=== PATIENT | female | born 2005 | race Caucasian/White ===

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

== ENCOUNTER 2023-04-07 20:17 | Emergency (ER) | payer MEDICAID, SELFPAY ==
[2023-04-07 20:23] VITALS: BP 104/71; PULSE 105; RESP 18; TEMP 37.2; O2SAT 98; BMI 24.4
[2023-04-07 21:13] LABS: Add Urine Culture? No; Add Urine Microscopic? YES; Amorphous Sediment Urine 2+ /hpf; Bacteria Urine TRACE /hpf; Bilirubin Urine Neg (Negative); Blood Urine Neg (Negative); Glucose Urine UA Norm (Normal); Ketones Urine Negative (Negative); Leukocyte Esterase Urine Trace (Negative); Nitrate Urine Negative (Negative); Protein Urine Neg (Negative); RBC Urine 0-4 /hpf (0-2); Squamous Epithelial Cell Urine 0-4 /hpf (0-5); Sulfosalicylic Acid Urine Negative (Negative); Urine Appearance Clear (CLEAR); Urine Color Yellow (Yellow); Urobilinogen Urine Norm (Negative); WBC Urine 0-4 /hpf (0-5); pH Urine 8 (5-7)
[2023-04-07 21:36] VITALS: BP 99/63; PULSE 110; RESP 16; O2SAT 97
--- NOTE | 2023-04-07 21:46 | W.ED.FEVER ---
HPI - Fever General: Chief Complaint: Fever Stated Complaint: fever, cp,chills, 5 weeks Time Seen by Provider: 04/07/23 20:29 History of Present Illness: Patient is in today for fever. She reports that she is 5 weeks . She reports that 2 hours ago, on the way home from [facility], she developed significant fever, chills, some nausea. She states that she has been around a family member who was recently sick with upper respiratory staff. She denies any pain with urination. She denies any vaginal bleeding or uterine cramping. She has not been vaccinated against influenza this year. Associated symptoms: Reports chills, headache(s), nasal congestion and nausea; Deny abdominal pain, flank pain, chest pain, dysuria or vomiting Review of Systems Const: Reports: fever(s), chills, body aches and fatigue ENMT: Reports: throat pain, nasal discharge, nasal congestion and post nasal drip Card: Denies: chest pain or palpitations Resp: Denies: dyspnea, productive cough or non-productive cough GI: Reports: nausea; Denies: abdominal pain or vomiting : Denies: flank pain, difficulty voiding, dysuria, urinary frequency or vaginal bleeding Neuro: Reports: headache(s); Denies: numbness in extremities, weakness in extremities, sensory changes or lack of coordination PFSH ED PFSH: Medical History Allergic rhinitis due to allergen Anxiety and depression Arthralgia Contraception management Foster care child Insomnia Seizures She stopped keppra 01/2021 at the recommendation of her PCP in [place]. Her last seizure was right before coming off the keppra. She has not seen neurology since coming out of foster care-- at least 2019. Viral URI with cough Surgical History History of tonsillectomy and adenoidectomy Surgery at age 4 in [place], [place] Family History Grandmother Diabetes maternal Hypertension Paternal Family/Other Cancer Maternal uncle; type unknown Denies family history of Colon cancer Ovarian cancer Heart disease Hypercholesteremia Breast cancer Uterine cancer Thyroid disease Stroke Social History (Reviewed 04/07/23 @ 21:50 by LINDSEY Ruiz-Tracy Substance/Drug Use: never Additional social history: Well balanced diet Do you think of yourself as: Straight/Heterosexual Female Reproductive History: Date of last menstrual period: 01/28/23 Physical Exam Const: COMMON NORMALS: no acute distress, patient oriented x3 and alert HENMT: COMMON NORMALS: TM's normal bilaterally NOSE: Nasal discharge present clear TYMPANIC MEMBRANE: TM's normal bilaterally THROAT: uvula midline, posterior oropharynx abnormal erythema and other (Postnasal drainage); no exudates and postnasal drainage Neck/C-Spine: COMMON NORMALS: no JVD Resp: COMMON NORMALS: normal respiratory effort, No use of accessory muscles and clear to auscultation bilaterally AUSCULTATION: clear to auscultation bilaterally Cardio: COMMON NORMALS: no JVD, regular rate, regular rhythm, S1 normal heart sound present, S2 normal heart sound present and No murmurs present (Cardio) RATE: regular rate RHYTHM: regular rhythm HEART SOUNDS: S1 normal heart sound present and S2 normal heart sound present GI: COMMON NORMALS: Normal to inspection, nondistended, normoactive bowel sounds present, Soft to palpation, non-tender and No hepatosplenomegaly present PALPATION: Yes Soft to palpation and Yes No hepatosplenomegaly present Neuro: COMMON NORMALS: patient oriented x3, CN's II-XII intact bilaterally and moves all extremities SENSORIUM/ORIENTATION: Yes alert Course Vital Signs: Vital signs: Vital Signs Temperature 99 F 04/07/23 20:23 Pulse Rate 110 H 04/07/23 21:36 Respiratory Rate 16 04/07/23 21:36 Blood Pressure 99/63 04/07/23 21:36 Pulse Oximetry 97 04/07/23 21:36 Oxygen Delivery Me thod Room Air 04/07/23 21:56 MDM - Fever Medical Decision Making Consider urinary tract infection, upper respiratory infection, influenza, COVID-19, strep pharyngitis Patient reports being 5 weeks with no complications thus far. UA dip positive for trace leukocytes negative for nitrates will send for culture treat as indicated based on culture results. COVID-19?negative Rapid strep?negative Influenza?negative CBC with normal white blood cell count. Heart rate and respirations are improved. Heart rate is in the 80s. Patient reports feeling better. She reports that she feels like she could go home at this point. She denies any pain anywhere. She denies that she has had any pelvic cramping or vaginal pain. We discussed discharge to home with conservative management of viral infection. Make sure that she is staying well-hydrated. Tylenol as needed to control fever. Continue routine follow-up with ADVERTISING SALES MANAGER. Follow-up with her PCP. Return to the ER for any new or worsening symptoms. Patient verbalizes understanding of instruction and wishes to be discharged home at this time. Lab Data 04/07/23 22:20 04/07/23 22:20 Laboratory Results WBC 12.45 10^3/uL (4.5-13.0) 04/07/23 22: RBC 4.18 10^6/uL (3.85-5.65) 04/07/23 22:20 Hgb 12.60 g/dL (12.4-14.8) 04/07/23 22:20 Hct 37.6 % (36-47) 04/07/23 22:20 MCV 90.0 fl (85-98) 04/07/23 22:20 MCH 30.1 pg (27-33) 04/07/23 22:20 MCHC 33.5 g/dL (30-55) 04/07/23 22:20 RDW 12.1 % (12.1-15.1) 04/07/23 22:20 Plt Count 192 10^3/cmm (157-399) 04/07/23 22:20 MPV 9.0 fL (7.4-10.4) 04/07/23 22:20 Neut % (Auto) 84.9 % 04/07/23 22:20 Lymph % (Auto) 8.6 % 04/07/23 22:20 [place] % (Auto) 5.4 % 04/07/23 22:20 Eos % (Auto) 0.6 % 04/07/23 22:20 Baso % (Auto) 0.2 % 04/07/23 22:20 Neut # (Auto) 10.58 10^3/uL (1.8-8.0) H 04/07/23 22:20 Lymph # (Auto) 1.1 10^3/uL (1.5-6.5) L 04/07/23 22:20 [place] # (Auto) 0.7 10^3/uL (0.2-0.9) 04/07/23 22:20 Eos # (Auto) 0.1 10^3/uL (0.0-0.8) 04/07/23 22:20 Baso # (Auto) 0.0 10^3/uL (0.0-0.1) 04/07/23 22:20 Nucleated RBC % (auto) 0 % 04/07/23 22:20 Nucleated RBCs # 0.0 /100WBC 04/07/23 22:20 Sodium 135 mmol/L (136-145) L 04/07/23 22:20 Potassium 3.7 mmol/L (3.5-5.1) 04/07/23 22:20 Chloride 104 mmol/L (98-107) 04/07/23 22:20 Carbon Dioxide 19 mmol/L (22-29) L 04/07/23 22:20 Anion Gap 15.7 (5-19) 04/07/23 22:20 BUN 7 mg/dL (6-20) 04/07/23 22:20 Creatinine 0.7 mg/dL (0.5-0.9) 04/07/23 22:20 GFR Calculation 106.7 mL/min (90-130) 04/07/23 22:20 Glucose 98 mg/dL (65-115) 04/07/23 22:20 Calculated Osmolality 278 mOsm/kg (285-295) L 04/07/23 22:20 Lactic Acid 0.7 mmol/L (0.5-2.2) 04/07/23 22:20 Calcium 9.2 mg/dL (8.5-10.5) 04/07/23 22:20 Total Bilirubin 0.4 mg/dL (0.15-1.2) 04/07/23 22:20 AST 12 U/L (0-32) 04/07/23 22:20 ALT 6 U/L (0-33) 04/07/23 22:20 Alkaline Phosphatase 80 U/L (35-105) 04/07/23 22:20 Total Protein 7.1 g/dL (6.6-8.7) 04/07/23 22:20 Albumin 4.4 g/dL (3.5-5.2) 04/07/23 22:20 Globulin 2.7 g/dL (1.3-4.6) 04/07/23 22:20 Ser , Semi-Qnt 82684.00 mIU/mL 04/07/23 22:20 Urine Color Yellow (Yellow) 04/07/23 18:45 Urine Appearance Clear (CLEAR) 04/07/23 18:45 Urine pH 8 (5-7) H 04/07/23 18:45 Ur Specific [place] 1.010 (1.005-1.030) 04/07/23 18:45 Urine Protein Neg (Negative) 04/07/23 18:45 Urine Glucose (UA) Norm (Normal) 04/07/23 18:45 Urine Ketones Negative (Negative) 04/07/23 18:45 Urine Blood Neg (Negative) 04/07/23 18:45 Urine Nitrate Negative (Negative) 04/07/23 18:45 Urine Bilirubin Neg (Negative) 04/07/23 18:45 Prot Sulfosalicylic Acd Negative (Negative) 04/07/23 18:45 Urine Urobilinogen Norm mg/dL (Negative) 04/07/23 18:45 Ur Leukocyte Esterase Trace (Negative) H 04/07/23 18:45 Urine RBC 0-4 /hpf (0-2) H 04/07/23 18:45 Urine WBC 0-4 /hpf (0-5) H 04/07/23 18:45 Ur Squamous Epith Cells 0-4 /hpf (0-5) H 04/07/23 18:45 Amorphous Sediment 2+ /hpf 04/07/23 18:45 Urine Bacteria Trace /hpf (NONE) 04/07/23 18:45 Influenza Type A Ag Negative (Negative) 04/07/23 21:31 Influenza Type B Ag Negative (Negative) 04/07/23 21:31 SARS-CoV-2 Ag (Rapid) Negative (Negative) 04/07/23 21:31 Group A Strep Rapid Negative (Negative) 04/07/23 21:31 No radiology studies performed this visit Discharge Plan Discharge Patient Disposition: Home Clinical Impression: Viral infection Condition: Stable Prescriptions: No Action paroxetine HCl [Paxil] 10 mg tablet 10 mg PO .qhs Qty: 30 5RF Discharge Orders: Discharge ED (Routine); Ordered 04/07/23 Ordered By: Charmaine Torres Referrals: Robin Smith MD [Primary Care Provider] - Discharge Diet: Usual diet Discharge Activity: Resume usual activity Patient Instructions: Viral Syndrome - Adult Activity Restrictions/Additional Instructions: You tested negative for COVID-19, influenza, strep pharyngitis. I recommend conservative treatment at home for viral infection including Tylenol as needed for fever control. Make sure that you are staying well-hydrated. Follow-up with your primary care provider as needed. Return to the ER for any new or worsening symptoms. Continue routine follow-up with ADVERTISING SALES MANAGER. Your urine was sent off today for culture should that come back positive for bacterial growth we will start you on antibiotics. Coding Level of Care Code ED Food Processing Plant Manager for Faizan Yao
[2023-04-07 21:48] LABS: Rapid Strep A Test Negative (Negative)
[2023-04-07 22:03] LABS: SARS Covid-2 Antigen Negative (Negative)
[2023-04-07 22:04] LABS: Influenza A by IFA Negative (Negative); Influenza B by IFA Negative (Negative)
[2023-04-07] MEDS: acetaminophen 500 mg Tablet 1000 MG PO (22:07)
[2023-04-07] MEDS: sodium chloride 0.9% 1,000 ML 999 ML IV (22:23)
[2023-04-07 22:45] LABS: Basophils % 0.2 %; Eosinophils # 0.1 10^3/uL (0.0-0.8); Eosinophils % 0.6 %; Hematocrit 37.6 % (36-47); Lymphocytes # 1.1 10^3/uL (1.5-6.5); Lymphocytes % 8.6 %; Mean Corpuscular HGB Conc 33.5 g/dL (30-55); Mean Corpuscular Hemoglobin 30.1 pg (27-33); Monocytes # 0.7 10^3/uL (0.2-0.9); Monocytes % 5.4 %; Neutrophils # 10.58 10^3/uL (1.8-8.0); Neutrophils % 84.9 %; Nucleated Red Blood Cells % 0 %; Platelet Count 192 10^3/cmm (157-399); Red Blood Count 4.18 10^6/uL (3.85-5.65); Red Cell Distribution Width 12.1 % (12.1-15.1); White Blood Count 12.45 10^3/uL (4.5-13.0)
[2023-04-07 22:56] LABS: Lactic Sepsis W/Reflex 0.7 mmol/L (0.5-2.2)
[2023-04-07 22:58] LABS: Alanine Aminotransferase 6 U/L (0-33); Albumin Level 4.4 g/dL (3.5-5.2); Alkaline Phosphatase 80 U/L (35-105); Anion Gap 15.7 (5-19); Aspartate Amino Transferase 12 U/L (0-32); Blood Urea Nitrogen 7 mg/dL (6-20); Calcium 9.2 mg/dL (8.5-10.5); Carbon Dioxide 19 mmol/L (22-29); Chloride 104 mmol/L (98-107); Globulin 2.7 g/dL (1.3-4.6); Glomerular Filtration Rate 106.7 mL/min (90-130); Glucose 98 mg/dL (65-115); Osmolality Calculated 278 mOsm/kg (285-295); Potassium 3.7 mmol/L (3.5-5.1); Sodium 135 mmol/L (136-145); Total Bilirubin 0.4 mg/dL (0.15-1.2); Total Protein 7.1 g/dL (6.6-8.7)
[2023-04-07 23:26] VITALS: BP 96/47; PULSE 86; RESP 16; O2SAT 95
== END 2023-04-07 23:26 | disposition home or self-care (01) ==
PROVIDERS: Emergency Medicine; Emergency Provider Nurse Practitioner Family; PCP Family Medicine Adult Medicine
DX: B34.9 Viral infection, unspecified (principal); Z11.52 Encounter for screening for COVID-19; O98.511 Other viral diseases complicating pregnancy, first trimester; Z3A.01 Less than 8 weeks gestation of pregnancy
CPT/HCPCS: 36415; 80053; 81001; 83605; 84702; 85025; 87081; 87426; 87804; 87880; 99284; J7030

== ENCOUNTER 2023-06-11 11:54 | Emergency (ER) | payer MEDICAID, SELFPAY ==
[2023-06-11 11:59] VITALS: BP 100/57; PULSE 73; RESP 15; TEMP 36.8; O2SAT 100; BMI 20.5
--- NOTE | 2023-06-11 12:25 | USR_ITS ---
PROCEDURE INFORMATION: Exam: US , Limited Exam date and time: 06/11/2023 1:29 PM Age: 18 years old Clinical indication: complicated by abdominal or pelvic pain; Lower; Second trimester (14 weeks 0 days to 27 weeks 6 days); Gestational age or lmp: 16 w1d by US; ; Additional info: Pelvic pain, 15 weeks gestation transabdominal technique. TECHNIQUE: Imaging protocol: Real-time ultrasound of the maternal uterus with image documentation. Exam focused on the clinical indication. COMPARISON: No relevant prior studies available. FINDINGS: Gestation: Intrauterine gestation. Within the uterus is a gestational sac with a single pole. Formal anatomical survey is not performed. heart rate: cardiac activity at 153 bpm is observed. Placenta: The relationship of the anterior placenta to the internal os is not fully delineated, recommend follow-up ultrasound in late 2nd trimester to exclude previa. Amniotic fluid: Amniotic fluid volume appears appropriate. BIOMETRY: Gestational age (AUA): Estimated age by ultrasound is 16 weeks and 1 day. Biparietal diameter (BPD): BPD 3.25 cm, 16 weeks 1 day. Head circumference (HC): Head circumference 12.2 cm, 16 weeks 1 day. Abdominal circumference (AC): Abdominal circumference 10.25 cm, 16 weeks 2 days. Femur length (FL): Femur length 2.0 cm, 16 weeks 0 days. MATERNAL: Cervix: Cervical length is 3.1 cm and appears closed. The maternal adnexa are not evaluated. US/US OB limited [id number] IMPRESSION: 1. Living intrauterine gestation at estimated 16 weeks and 0 days. Recommend correlation with clinical history. 2. Anterior placenta. Relationship of the placenta to the internal os is not fully delineated, recommend follow-up ultrasound to exclude placenta previa or low-lying placenta.
--- NOTE | 2023-06-11 12:25 | ED_ITS ---
HPI - Abdominal Pain 2 General: Chief Complaint: Abdominal Pain Stated Complaint: lower abd pain (pt is 15 weeks prg) Time Seen by Provider: 06/11/23 12:17 History of Present Illness: Patient presents to the ER with complaints of low stabbing abdominal pain that radiates to the back. Patient said this been going on for about the last week or so. Patient does not had a recent ultrasound. Patient is high risk and says she needs biweekly ultrasounds. 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 Patient states she is approximately 15 weeks gestation, has a history of seizures, denies any nausea vomiting diarrhea dysuria. Patient states the low pelvic pain is worse with movement palpation and coughing. Review of Systems 2 General: Reports: 10 or more systems reviewed and unremarkable except in HPI and below PFSH ED 2 PFSH: Medical History Allergic rhinitis due to allergen Viral URI with cough Insomnia Arthralgia Foster care child Anxiety and depression Seizures She stopped keppra 01/2021 at the recommendation of her PCP in [place]. Her last seizure was right before coming off the keppra. She has not seen neurology since coming out of foster care-- at least 2019. Contraception management Surgical History History of tonsillectomy and adenoidectomy Surgery at age 4 in [place], [place] Family History Grandmother Diabetes maternal Hypertension Paternal Family/Other Cancer Maternal uncle; type unknown Denies family history of Colon cancer Ovarian cancer Heart disease Hypercholesteremia Breast cancer Uterine cancer Thyroid disease Stroke Social History Substance/Drug Use: never Additional social history: Well balanced diet Do you think of yourself as: Straight/Heterosexual Physical Exam 2 Const: COMMON NORMALS: no acute distress, average body habitus, patient oriented x3, no limitations, healthy appearing, alert and well nourished HENMT: COMMON NORMALS: normocephalic, atraumatic, hearing grossly normal bilaterally, external ears normal, Normal external nose present, moist oral mucous membranes and oropharynx normal HEAD & SCALP: normocephalic and atraumatic NOSE: Normal external nose present EXTERNAL EAR: Yes external ears normal Neck/C-Spine: COMMON NORMALS: no JVD Chest: COMMONS NORMALS: normal inspection of the chest and normal palpation of entire chest wall Resp: COMMON NORMALS: normal respiratory effort, No retractions, No use of accessory muscles and clear to auscultation bilaterally AUSCULTATION: clear to auscultation bilaterally Cardio: COMMON NORMALS: no JVD, regular rate, regular rhythm, S1 normal heart sound present, S2 normal heart sound present, No gallops present (Cardio), No clicks present (Cardio), No murmurs present (Cardio) and No rub (Cardio) R ATE: regular rate RHYTHM: regular rhythm HEART SOUNDS: S1 normal heart sound present and S2 normal heart sound present GI: COMMON NORMALS: Normal to inspection, nondistended, normoactive bowel sounds present, Soft to palpation and No hepatosplenomegaly present; negative for non-tender (Tender lower pelvic bilaterally) PALPATION: Yes Soft to palpation and Yes No hepatosplenomegaly present Neuro: COMMON NORMALS: patient oriented x3 SENSORIUM/ORIENTATION: Yes alert Course 2 Vital Signs: Vital signs: Vital Signs Temperature 98.2 F 06/11/23 11:59 Pulse Rate 83 06/11/23 13:16 Respiratory Rate 15 06/11/23 13:16 Blood Pressure 100/57 06/11/23 13:16 Pulse Oximetry 100 06/11/23 13:16 Oxygen Delivery Me thod Room Air 06/11/23 13:16 MDM - Abdominal Pain Medical Decision Making Patient lab work and urinalysis performed. Urinalysis showed urinary tract infection. OB ultrasound showed living intrauterine estimated 16 weeks 0 days. Patient was informed of these results. Patient be started on amoxicillin for her urinary tract infection and we will await culture. Patient should follow-up with her OB within next 7 to 10 days for further evaluation and treatment. Differential Diagnosis Likely abdominal pain; Unlikely acute appendicitis, calculus of kidney, constipation, diverticulitis, endometriosis, gastroenteritis, pancreatitis or small bowel obstruction Medical Records I reviewed the patient's medical records. Lab Data I reviewed the patient's lab results. 06/11/23 12:56 Labs/Radiology: Radiology Impressions Obstetrics Ultrasound 06/11/23 12:25 IMPRESSION: 1. Living intrauterine gestation at estimated 16 weeks and 0 days. Recommend correlation with clinical history. 2. Anterior placenta. Relationship of the placenta to the internal os is not fully delineated, recommend follow-up ultrasound to exclude placenta previa or low-lying placenta. Laboratory Results WBC 6.88 10^3/uL (4.5-13.0) 06/11/23 12:56 RBC 3.75 10^6/uL (3.85-5.65) L 06/11/23 12:56 Hgb 11.20 g/dL (12.4-14.8) L 06/11/23 12:56 Hct 33.4 % (36-47) L 06/11/23 12:56 MCV 89.1 fl (85-98) 06/11/23 12:56 MCH 29.9 pg (27-33) 06/11/23 12:56 MCHC 33.5 g/dL (30-55) 06/11/23 12:56 RDW 12.5 % (12.1-15.1) 06/11/23 12:56 Plt Count 157 10^3/cmm (157-399) 06/11/23 12:56 MPV 8.8 fL (7.4-10.4) 06/11/23 12:56 Neut % (Auto) 69.2 % 06/11/23 12:56 Lymph % (Auto) 23.7 % 06/11/23 12:56 [place] % (Auto) 4.2 % 06/11/23 12:56 Eos % (Auto) 2.5 % 06/11/23 12:56 Baso % (Auto) 0.1 % 06/11/23 12:56 Neut # (Auto) 4.76 10^3/uL (1.8-8.0) 06/11/23 12:56 Lymph # (Auto) 1.6 10^3/uL (1.5-6.5) 06/11/23 12:56 [place] # (Auto) 0.3 10^3/uL (0.2-0.9) 06/11/23 12:56 Eos # (Auto) 0.2 10^3/uL (0.0-0.8) 06/11/23 12:56 Baso # (Auto) 0.0 10^3/uL (0.0-0.1) 06/11/23 12:56 Nucleated RBC % (auto) 0 % 06/11/23 12:56 Nucleated RBCs # 0.0 /100WBC 06/11/23 12:56 Urine Color Yellow (Yellow) 06/11/23 12:12 Urine Appearance Clear (CLEAR) 06/11/23 12:12 Urine pH 5 (5-7) 06/11/23 12:12 Ur Specific [place] 1.025 (1.005-1.030) 06/11/23 12:12 Urine Protein Neg (Negative) 06/11/23 12:12 Urine Glucose (UA) Norm (Normal) 06/11/23 12:12 Urine Ketones Negative (Negative) 06/11/23 12:12 Urine Blood Neg (Negative) 06/11/23 12:12 Urine Nitrate Negative (Negative) 06/11/23 12:12 Urine Bilirubin Neg (Negative) 06/11/23 12:12 Urine Urobilinogen Norm mg/dL (Negative) 06/11/23 12:12 Ur Leukocyte Esterase 2+ (Negative) H 06/11/23 12:12 Urine RBC 0-4 /hpf (0-2) H 06/11/23 12:12 Urine WBC 5-10 /hpf (0-5) H 06/11/23 12:12 Ur Squamous Epith Cells 0-4 /hpf (0-5) H 06/11/23 12:12 Amorphous Sediment Not Reportable 06/11/23 12:12 Urine Bacteria Trace /hpf (NONE) 06/11/23 12:12 Urine Mucus 3+ /hpf 06/11/23 12:12 All radiology interpretation(s) finalized by discharge Discharge Plan Discharge Patient Disposition: Home Clinical Impression: UTI in Qualifiers: Trimester: second trimester Qualified Code(s): O23.42 - Unspecified infection of urinary tract in , second trimester Condition: Stable Prescriptions: New amoxicillin 500 mg capsule 500 mg PO TID 10 Days Qty: 30 0RF No Action paroxetine HCl [Paxil] 10 mg tablet 10 mg PO .qhs Qty: 30 5RF Discharge Orders: Discharge ED (Routine); Ordered 06/11/23 Ordered By: Carlos Alberto Cruz Referrals: Robin Smith MD [Primary Care Provider] - 1 week Patient Instructions: Urinary Tract Infection in (ED) Activity Restrictions/Additional Instructions: The ultrasound in ER was normal showing gestation of about 16 weeks and 0 days. Your urine did show you may have a urinary tract infection. We will start you on amoxicillin and wait for culture results. Please follow-up with your OB within the next 7 to 10 days for further evaluation and treatment. Coding Level of Care Code ED Kitchen Supervisor for Faizan Yao
[2023-06-11 12:26] LABS: Add Urine Microscopic? YES; Bilirubin Urine Neg (Negative); Blood Urine Neg (Negative); Glucose Urine UA Norm (Normal); Ketones Urine Negative (Negative); Leukocyte Esterase Urine 2+ (Negative); Nitrate Urine Negative (Negative); Protein Urine Neg (Negative); Specific Gravity, Urine 1.025 (1.005-1.030); Urine Appearance Clear (CLEAR); Urine Color Yellow (Yellow); Urobilinogen Urine Norm (Negative); pH Urine 5 (5-7)
[2023-06-11 12:30] VITALS: BP 100/57; PULSE 84; RESP 16; O2SAT 99
[2023-06-11 12:36] LABS: Add Urine Culture? No; Bacteria Urine TRACE /hpf; Mucus Urine 3+ /hpf; RBC Urine 0-4 /hpf (0-2); Squamous Epithelial Cell Urine 0-4 /hpf (0-5)
[2023-06-11 13:07] LABS: Basophils % 0.1 %; Eosinophils # 0.2 10^3/uL (0.0-0.8); Eosinophils % 2.5 %; Hematocrit 33.4 % (36-47); Lymphocytes # 1.6 10^3/uL (1.5-6.5); Lymphocytes % 23.7 %; Mean Corpuscular HGB Conc 33.5 g/dL (30-55); Mean Corpuscular Hemoglobin 29.9 pg (27-33); Mean Corpuscular Volume 89.1 fl (85-98); Mean Platelet Volume 8.8 fL (7.4-10.4); Monocytes # 0.3 10^3/uL (0.2-0.9); Monocytes % 4.2 %; Neutrophils # 4.76 10^3/uL (1.8-8.0); Neutrophils % 69.2 %; Nucleated Red Blood Cells % 0 %; Platelet Count 157 10^3/cmm (157-399); Red Blood Count 3.75 10^6/uL (3.85-5.65); Red Cell Distribution Width 12.5 % (12.1-15.1); White Blood Count 6.88 10^3/uL (4.5-13.0)
[2023-06-11 13:16] VITALS: BP 100/57; PULSE 83; RESP 15; O2SAT 100
[2023-06-11 14:49] VITALS: BP 100/57; PULSE 83; RESP 15; TEMP 36.8; O2SAT 100
== END 2023-06-11 14:50 | disposition home or self-care (01) ==
PROVIDERS: Emergency Provider Emergency Medicine; PCP Family Medicine Adult Medicine
DX: O23.42 Unspecified infection of urinary tract in pregnancy, second trimester (principal); N39.0 Urinary tract infection, site not specified; Z3A.16 16 weeks gestation of pregnancy
CPT/HCPCS: 36415; 76815; 81001; 85025; 99284

== ENCOUNTER 2023-07-08 19:29 | Emergency (ER) | payer MEDICAID, SELFPAY ==
[2023-07-08 19:47] VITALS: BP 112/69; PULSE 106; RESP 16; TEMP 37.2; O2SAT 97
[2023-07-08 20:20] LABS: Basophils % 0.2 %; Eosinophils % 0.1 %; Lymphocytes # 0.7 10^3/uL (1.5-6.5); Lymphocytes % 8.7 %; Mean Corpuscular Hemoglobin 29.7 pg (27-33); Mean Corpuscular Volume 87.5 fl (85-98); Mean Platelet Volume 8.8 fL (7.4-10.4); Monocytes # 0.5 10^3/uL (0.2-0.9); Monocytes % 5.9 %; Neutrophils # 7.01 10^3/uL (1.8-8.0); Neutrophils % 84.5 %; Nucleated Red Blood Cells % 0 %; Platelet Count 190 10^3/cmm (157-399); Red Blood Count 3.43 10^6/uL (3.85-5.65); Red Cell Distribution Width 13.4 % (12.1-15.1)
[2023-07-08 20:37] LABS: Alanine Aminotransferase < 5 U/L (0-33); Albumin Level 3.8 g/dL (3.5-5.2); Alkaline Phosphatase 84 U/L (35-105); Anion Gap 10.9 (5-19); Aspartate Amino Transferase 12 U/L (0-32); Blood Urea Nitrogen 6 mg/dL (6-20); Carbon Dioxide 23 mmol/L (22-29); Chloride 101 mmol/L (98-107); Globulin 2.7 g/dL (1.3-4.6); Glomerular Filtration Rate 157.3 mL/min (90-130); Glucose 87 mg/dL (65-115); Osmolality Calculated 269 mOsm/kg (285-295); Potassium 3.9 mmol/L (3.5-5.1); Sodium 131 mmol/L (136-145); Total Bilirubin 0.3 mg/dL (0.15-1.2); Total Protein 6.5 g/dL (6.6-8.7)
[2023-07-08 21:32] VITALS: BP 104/57; PULSE 97; RESP 14; O2SAT 99
[2023-07-08 21:45] LABS: Influenza A by IFA negative (Negative); Influenza B by IFA negative (Negative); SARS Covid-2 Antigen negative (Negative)
--- NOTE | 2023-07-08 21:45 | W.ED.HA ---
HPI - Headache General: Chief Complaint: Headache Stated Complaint: Fever\Body Aches\Chills Time Seen by Provider: 07/08/23 21:19 History of Present Illness: Patient is a 18-year-old approximately 19-week female who presents to the emergency department for evaluation fever, myalgias, and a headache. Patient reports that her symptoms started today and has continued to progress since onset. Highest temperature at home was 100.7 ?F. Temperature in triage is 98.9 ?F. Patient reports that she went to [facility] who Doppled heart tones which was normal. Patient denies abdominal pain, vaginal bleeding, abnormal vaginal discharge, dysuria, or hematuria. Patient currently rates her headache as an 8 out of 10 in severity that she describes as a throbbing-like sensation. Headache is bilateral and frontal. Patient's endorses myalgias. Patient denies cough, congestion, sore throat, otalgia, otorrhea, neck pain, visual disturbances, numbness, tingling, constipation, diarrhea, or any other associated symptoms. No other complaints at this time. Associated symptoms: Reports fever(s); Deny chest pain, nausea, rash or vomiting Review of Systems General: Reports: 10 or more systems reviewed and unremarkable except in HPI and below Const: Reports: fever(s), chills and body aches Eyes: Denies: change in vision, blurry vision, eye discharge or eye redness ENMT: Denies: throat pain, ear or mastoid pain, ear discharge, nasal discharge or nasal congestion Card: Denies: chest pain or palpitations Resp: Denies: dyspnea, productive cough, non-productive cough, wheezing, stridor or pain on inspiration GI: Denies: abdominal pain, nausea or vomiting : Denies: flank pain, difficulty voiding, dysuria, urinary frequency, vaginal bleeding or vaginal discharge Musc: Denies: neck pain Skin/Breast: Denies: rash Neuro: Reports: headache(s) PFSH ED PFSH: Medical History Allergic rhinitis due to allergen Viral URI with cough Insomnia Arthralgia Foster care child Anxiety and depression Seizures She stopped keppra 01/2021 at the recommendation of her PCP in [place]. Her last seizure was right before coming off the keppra. She has not seen neurology since coming out of foster care-- at least 2019. Contraception management Surgical History History of tonsillectomy and adenoidectomy Surgery at age 4 in [place], [place] Family History Grandmother Diabetes maternal Hypertension Paternal Family/Other Cancer Maternal uncle; type unknown Denies family history of Colon cancer Ovarian cancer Heart disease Hypercholesteremia Breast cancer Uterine cancer Thyroid disease Stroke Social History Substance/Drug Use: never Additional social history: Well balanced diet Do you think of yourself as: Straight/Heterosexual Physical Exam Const: COMMON NORMALS: no acute distress, average body habitus, patient oriented x3, no limitations and healthy appearing HENMT: COMMON NORMALS: normocephalic, atraumatic, external ears normal, EAC's normal, TM's normal bilaterally, Normal external nose present, moist oral mucous membranes and oropharynx normal HEAD & SCALP: normocephalic and atraumatic NOSE: Normal external nose present EXTERNAL EAR: Yes external ears normal EXTERNAL AUDITORY CANAL: EAC's normal TYMPANIC MEMBRANE: TM's normal bilaterally Eye: COMMON NORMALS: Equal, round and reactive pupils present, EOMs intact bilaterally, conjunctivae normal and no scleral icterus CONJUNCTIVA: Yes conjunctivae normal PUPIL: Yes Equal, round and reactive pupils present Neck/C-Spine: COMMON NORMALS: full ROM, no lymphadenopathy, supple, no meningeal signs and no JVD Lymph: LYMPHATIC: no lymphadenopathy noted Resp: COMMON NORMALS: normal respiratory effort, No retractions, No use of accessory muscles and clear to auscultation bilaterally AUSCULTATION: clear to auscultation bilaterally Cardio: COMMON NORMALS: no JVD, regular rhythm, S1 normal heart sound present, S2 normal heart sound present, No gallops present (Cardio), No clicks present (Cardio), No murmurs present (Cardio), No rub (Cardio) and Peripheral pulses 2+ throughout RATE: tachycardic RHYTHM: regular rhythm HEART SOUNDS: S1 normal heart sound present and S2 normal heart sound present PERIPHERAL PULSES: Peripheral pulses 2+ throughout : OTHER: Abdomen is nontender. Fundus can be palpated at the umbilicus. Normoactive bowel sounds in all 4 quadrants. Extremity: NARRATIVE EXTREMITY EXAM: Moving bilateral upper and lower extremities without weakness or deficit. Neuro: COMMON NORMALS: patient oriented x3 MENINGEAL SIGNS: Yes no meningeal signs Course Vital Signs: Vital signs: Vital Signs Temperature 98.9 F 07/08/23 19:47 Pulse Rate 108 H 07/08/23 23:54 Respiratory Rate 16 07/08/23 23:54 Blood Pressure 105/51 07/08/23 23:54 Pulse Oximetry 97 07/08/23 23:54 Oxygen Delivery Me thod Room Air 07/08/23 23:54 MDM - Headache Medical Decision Making Patient is a 18-year-old approximately 19-week female who presents to the emergency department for evaluation fever, myalgias, and a headache. On physical examination patient is nontoxic and in no acute distress. Vital signs remained stable throughout ED course. Patient is afebrile. Patient is alert and oriented x 4. No focal neurological deficits noted on examination. Patient is neurovascularly intact. CBC showed no evidence of leukocytosis. CMP unremarkable. Influenza and COVID-19 negative. Urinalysis showed evidence of urinary tract infection. Urine culture currently pending. Patient was given Tylenol and IV fluids in the emergency department. Patient stated improvement of symptoms after medication administration. No meningeal signs noted on examination. I do not think meningitis or encephalitis is likely at this time. I did offer a lumbar puncture in the emergency department to further rule out meningitis/encephalitis, however, the patient denied all further management at this time and is requesting to be discharged with close follow-up with [facility] and primary care provider. Patient reports that the headache was gradual in onset. Patient denies thunderclap headache or worst headache of her life. I do not think subarachnoid hemorrhage is likely at this time. Patient denies abdominal pain, vaginal bleeding, or abnormal vaginal discharge of any kind. Patient was evaluated at [facility] today. heart tones were normal at that time. Based off history and physical examination I do not believe the patient symptoms are emergent and warrant further emergent evaluation at this time. I will treat the patient's urinary tract infection with Keflex pending urine culture and have the patient follow-up with her [facility] and primary care provider for further management/evaluation. Patient was given strict return precautions. Patient stated understanding of all discharge instructions and was agreeable to plan of care. I discussed the patient's history, exam, and all findings with Dr. Paul in the emergency department who agreed with my assessment and plan. He did not feel the patient required admission or further evaluation at this time. Differential diagnosis includes but is not limited to viral illness, COVID-19, urinary tract infection, REID, electrolyte abnormality, meningitis, encephalitis, subarachnoid hemorrhage, migraine, tension headache, cluster headache Lab Data 07/08/23 20:09 07/08/23 20:09 Laboratory Results WBC 8.30 10^3/uL (4.5-13.0) 07/08/23 20:09 RBC 3.43 10^6/uL (3.85-5.65) L 07/08/23 20:09 Hgb 10.20 g/dL (12.4-14.8) L 07/08/23 20:09 Hct 30.0 % (36-47) L 07/08/23 20:09 MCV 87.5 fl (85-98) 07/08/23 20:09 MCH 29.7 pg (27-33) 07/08/23 20:09 MCHC 34.0 g/dL (30-55) 07/08/23 20:09 RDW 13.4 % (12.1-15.1) 07/08/23 20:09 Plt Count 190 10^3/cmm (157-399) 07/08/23 20:09 MPV 8.8 fL (7.4-10.4) 07/08/23 20:09 Neut % (Auto) 84.5 % 07/08/23 20:09 Lymph % (Auto) 8.7 % 07/08/23 20:09 Banks % (Auto) 5.9 % 07/08/23 20:09 Eos % (Auto) 0.1 % 07/08/23 20:09 Baso % (Auto) 0.2 % 07/08/23 20:09 Neut # (Auto) 7.01 10^3/uL (1.8-8.0) 07/08/23 20:09 Lymph # (Auto) 0.7 10^3/uL (1.5-6.5) L 07/08/23 20:09 Banks # (Auto) 0.5 10^3/uL (0.2-0.9) 07/08/23 20:09 Eos # (Auto) 0.0 10^3/uL (0.0-0.8) 07/08/23 20:09 Baso # (Auto) 0.0 10^3/uL (0.0-0.1) 07/08/23 20:09 Nucleated RBC % (auto) 0 % 07/08/23 20:09 Nucleated RBCs # 0.0 /100WBC 07/08/23 20:09 Sodium 131 mmol/L (136-145) L 07/08/23 20:09 Potassium 3.9 mmol/L (3.5-5.1) 07/08/23 20:09 Chloride 101 mmol/L (98-107) 07/08/23 20:09 Carbon Dioxide 23 mmol/L (22-29) 07/08/23 20:09 Anion Gap 10.9 (5-19) 07/08/23 20:09 BUN 6 mg/dL (6-20) 07/08/23 20:09 Creatinine 0.5 mg/dL (0.5-0.9) 07/08/23 20:09 GFR Calculation 157.3 mL/min (90-130) H 07/08/23 20:09 Glucose 87 mg/dL (65-115) 07/08/23 20:09 Calculated Osmolality 269 mOsm/kg (285-295) L 07/08/23 20:09 Calcium 9.0 mg/dL (8.5-10.5) 07/08/23 20:09 Total Bilirubin 0.3 mg/dL (0.15-1.2) 07/08/23 20:09 AST 12 U/L (0-32) 07/08/23 20:09 ALT < 5 U/L (0-33) 07/08/23 20:09 Alkaline Phosphatase 84 U/L (35-105) 07/08/23 20:09 Total Protein 6.5 g/dL (6.6-8.7) L 07/08/23 20:09 Albumin 3.8 g/dL (3.5-5.2) 07/08/23 20:09 Globulin 2.7 g/dL (1.3-4.6) 07/08/23 20:09 Urine Color Yellow (Yellow) 07/09/23 00:00 Urine Appearance Cloudy (CLEAR) A 07/09/23 00:00 Urine pH 6 (5-7) 07/09/23 00:00 Ur Specific Gordon 1.010 (1.005-1.030) 07/09/23 00:00 Urine Protein Neg (Negative) 07/09/23 00:00 Urine Glucose (UA) Norm (Normal) 07/09/23 00:00 Urine Ketones 1+ (Negative) H 07/09/23 00:00 Urine Blood Neg (Negative) 07/09/23 00:00 Urine Nitrate Positive (Negative) H 07/09/23 00:00 Urine Bilirubin Neg (Negative) 07/09/23 00:00 Urine Urobilinogen Norm mg/dL (Negative) 07/09/23 00:00 Ur Leukocyte Esterase 2+ (Negative) H 07/09/23 00:00 Urine RBC 0-4 /hpf (0-2) H 07/09/23 00:00 Urine WBC 5-10 /hpf (0-5) H 07/09/23 00:00 Ur Squamous Epith Cells 0-4 /hpf (0-5) H 07/09/23 00:00 Amorphous Sediment Not Reportable 07/09/23 00:00 Urine Bacteria 3+ /hpf (NONE) H 07/09/23 00:00 Urine Mucus Trace /hpf 07/09/23 00:00 Influenza Type A Ag negative (Negative) 07/08/23 21:26 Influenza Type B Ag negative (Negative) 07/08/23 21:26 SARS-CoV-2 Ag (Rapid) negative (Negative) 07/08/23 21:26 No radiology studies performed this visit Discharge Plan Discharge Patient Disposition: Home Clinical Impression: Urinary tract infection affecting Condition: Stable Prescriptions: New cephalexin 500 mg capsule 500 mg PO QID 10 Days Qty: 40 0RF No Action paroxetine HCl [Paxil] 10 mg tablet 10 mg PO .qhs Qty: 30 5RF Discharge Orders: Discharge ED (Routine); Ordered 07/09/23 Ordered By: Prosper Montero Referrals: Robin Smith MD [Primary Care Provider] - Patient Instructions: Urinary Tract Infection in (ED) Activity Restrictions/Additional Instructions: As discussed in room you were noted to have a urinary tract infection. Increase oral hydration. Tylenol as needed for fever or comfort. A prescription of Keflex was sent to pharmacy to be picked up. Take medication as prescribed. Call your [facility] and primary care provider tomorrow with an update of your symptoms and to schedule appointment for further management/evaluation. Return to the emergency department for any rapid or worsening symptoms to include but not limited to fever, abdominal pain, vaginal bleeding, abnormal vaginal discharge, chest pain, shortness of breath, lightheadedness, dizziness, or as needed. Coding Level of Care Code ED Senior Field Service Engineer for Faizan Yao
[2023-07-08] MEDS: sodium chloride 0.9% 1,000 ML 999 ML IV ×2 (22:13→23:58)
[2023-07-08 22:33] VITALS: BP 91/68; PULSE 95; RESP 14; O2SAT 100
[2023-07-08 23:54] VITALS: BP 105/51; PULSE 108; RESP 16; O2SAT 97
[2023-07-09 00:32] LABS: Add Urine Microscopic? YES; Bilirubin Urine Neg (Negative); Blood Urine Neg (Negative); Glucose Urine UA Norm (Normal); Ketones Urine 1+ (Negative); Leukocyte Esterase Urine 2+ (Negative); Nitrate Urine Positive (Negative); Protein Urine Neg (Negative); Urine Appearance Cloudy (CLEAR); Urine Color Yellow (Yellow); Urobilinogen Urine Norm (Negative); pH Urine 6 (5-7)
[2023-07-09 00:33] LABS: Add Urine Culture? Yes; Bacteria Urine 3+ /hpf; Mucus Urine TRACE /hpf; RBC Urine 0-4 /hpf (0-2); Squamous Epithelial Cell Urine 0-4 /hpf (0-5)
[2023-07-09] MEDS: acetaminophen 325 mg Tablet 650 MG PO (00:40)
[2023-07-09 00:59] VITALS: BP 105/51; PULSE 108; RESP 16; TEMP 37.2; O2SAT 97
[2023-07-09] MEDS: cephALEXin 500 mg Capsule PO (00:59)
== END 2023-07-09 01:00 | disposition home or self-care (01) ==
PROVIDERS: Emergency Medicine; Emergency Provider Physician Assistant; PCP Family Medicine Adult Medicine
DX: O23.42 Unspecified infection of urinary tract in pregnancy, second trimester (principal); N39.0 Urinary tract infection, site not specified; Z3A.19 19 weeks gestation of pregnancy; Z11.52 Encounter for screening for COVID-19
CPT/HCPCS: 80053; 81001; 85025; 87077; 87086; 87186; 87426; 87804; 96360; 96361; 99284; J7030

== ENCOUNTER 2023-09-15 17:39 | Outpatient (CLI) | payer MEDICAID, SELFPAY ==
[2023-09-15] VITALS (7 sets, daily range): BP systolic 92–101; BP diastolic 51–56; PULSE 83–92; BMI 24.5
[2023-09-15 18:59] LABS: Bilirubin Urine Neg (Negative); Blood Urine Neg (Negative); Glucose Urine UA Norm (Normal); Ketones Urine Negative (Negative); Leukocyte Esterase Urine Trace (Negative); Nitrate Urine Negative (Negative); Protein Urine Neg (Negative); Specific Gravity, Urine 1.015 (1.005-1.030); Urine Appearance Clear (CLEAR); Urine Color Yellow (Yellow); Urobilinogen Urine Norm (Negative); pH Urine 6 (5-7)
[2023-09-15 19:01] LABS: Bacteria Urine 1+ /hpf; WBC Urine 0-4 /hpf (0-5)
[2023-09-15 19:02] LABS: Add Urine Culture? No
[2023-09-15] MEDS: acetaminophen 500 mg Tablet 1000 MG PO (19:09)
== END 2023-09-15 19:45 | disposition home or self-care (01) ==
LOC: OPOB 17:44 → OBGYN 17:46
PROVIDERS: Family Medicine; PCP Family Medicine Adult Medicine; Visit Provider Family Medicine
DX: O26.899 Other specified pregnancy related conditions, unspecified trimester (principal); Z3A.00 Weeks of gestation of pregnancy not specified; R10.9 Unspecified abdominal pain
CPT/HCPCS: 59025; 81001; 99211

== ENCOUNTER 2023-09-28 19:15 | Outpatient (CLI) | payer MEDICAID, SELFPAY ==
[2023-09-28 19:07] VITALS: BMI 24.6
[2023-09-28 19:28] VITALS: BP 96/55; PULSE 117; TEMP 36.5
[2023-09-28 19:49] VITALS: BP 98/57; PULSE 82
[2023-09-28 20:10] VITALS: BP 128/61; PULSE 87
[2023-09-28] MEDS: acetaminophen 500 mg Tablet 1000 MG PO (20:12)
--- NOTE | 2023-09-28 20:28 | USR_ITS ---
PROCEDURE INFORMATION: Exam: US Biophysical Profile Without Non-Stress Test Exam date and time: 09/28/2023 9:11 PM Age: 18 years old Clinical indication: Injury or trauma; Fall; Injury indication: Fell skilled nursing down a flight of stairs. Injury date: 09/28/2023; Injury details: No loss of consciousness, no fractures, no vaginal bleeding. ; Patient HX: G1-p0-a0-l0 TECHNIQUE: Imaging protocol: US biophysical profile without non-stress testing. COMPARISON: US OB >= 14 weeks fetus [id number] 07/13/2023 9:58 AM FINDINGS: heart rate: 150 bpm presentation: Cephalic Placenta: Anterior grade 1 placenta without previa. Amniotic fluid index: IRVIN is 17.95 cm. BIOPHYSICAL PROFILE: breathing (BPP): 2 /2 gross body movement (BPP): 2 /2 tone (BPP): 2 /2 Amniotic fluid (BPP): 2 /2 Biophysical profile score (BPP): 8 /8 MATERNAL ANATOMY: Cervix: Cervical length measures 4.2 cm and closed. US/US OB BPP wo NST [id number] IMPRESSION: Single live intrauterine in cephalic presentation. biophysical profile score 8/8
[2023-09-28 20:29] VITALS: BP 100/55; PULSE 86
[2023-09-28 20:49] VITALS: BP 91/65; PULSE 86
[2023-09-28 21:58] VITALS: BP 100/57; PULSE 89
== END 2023-09-28 22:02 | disposition home or self-care (01) ==
LOC: OPOB 19:16 → OBGYN 19:17
PROVIDERS: PCP Family Medicine Adult Medicine; Visit Provider Family Medicine
DX: O26.899 Other specified pregnancy related conditions, unspecified trimester (principal); Z3A.00 Weeks of gestation of pregnancy not specified; Z91.81 History of falling
CPT/HCPCS: 59025; 76819; 99211

== ENCOUNTER 2023-09-29 20:04 | Outpatient (CLI) | payer MEDICAID, SELFPAY ==
[2023-09-29 20:04] VITALS: BMI 25.0
[2023-09-29 20:11] VITALS: BP 99/52; PULSE 83
[2023-09-29 20:38] VITALS: BP 94/53; PULSE 85
[2023-09-29 20:42] VITALS: BP 93/50; PULSE 86
[2023-09-29 21:05] VITALS: BP 104/59; PULSE 85; RESP 16; TEMP 36.6
== END 2023-09-29 21:05 | disposition home or self-care (01) ==
LOC: OPOB 20:05 → OBGYN 20:06
PROVIDERS: PCP Family Medicine Adult Medicine; Visit Provider Family Medicine
DX: O26.899 Other specified pregnancy related conditions, unspecified trimester (principal); R10.9 Unspecified abdominal pain; M54.50 Low back pain, unspecified
CPT/HCPCS: 59025; 99211

== ENCOUNTER 2023-10-05 13:50 | Outpatient (CLI) | payer MEDICAID, SELFPAY ==
[2023-10-05] VITALS (29 sets, daily range): BP systolic 89–110; BP diastolic 52–66; PULSE 80–142; RESP 17; O2SAT 97–100; BMI 24.6
--- NOTE | 2023-10-05 15:08 | USR_ITS ---
PROCEDURE INFORMATION: Exam: US Retroperitoneal; Complete; Kidneys and Bladder Exam date and time: 10/05/2023 4:02 PM Age: 18 years old Clinical indication: Other: Biliteral flank pain TECHNIQUE: Imaging protocol: Real-time ultrasound of the retroperitoneum with image documentation. Complete exam focused on the kidneys and bladder. COMPARISON: US OB BPP wo NST [id number] 09/28/2023 9:11 PM FINDINGS: Right kidney: Moderate right-sided hydronephrosis, which may be physiologic in the setting of . Renal parenchyma is otherwise unremarkable. Left kidney: Mild left-sided hydronephrosis. Renal parenchyma is grossly unremarkable. Urinary bladder: Bladder is grossly unremarkable. Ureteral jets were not well visualized. US/US renal BI* [id number] IMPRESSION: 1. Moderate right-sided and mild left-sided hydronephrosis.
[2023-10-05 15:12] LABS: Blood Urine Neg (Negative); Glucose Urine UA 2+ (Normal); Ketones Urine 1+ (Negative); Nitrate Urine Negative (Negative); Protein Urine Neg (Negative); Urine Appearance Cloudy (CLEAR); Urine Color Yellow (Yellow); Urobilinogen Urine Norm (Negative); pH Urine 6 (5-7)
[2023-10-05 15:13] LABS: Bilirubin Urine Neg (Negative); Leukocyte Esterase Urine 2+ (Negative)
[2023-10-05 15:19] LABS: Add Urine Culture? No; Bacteria Urine TRACE /hpf; Mucus Urine TRACE /hpf; RBC Urine RARE /hpf (0-2); Squamous Epithelial Cell Urine 0-4 /hpf (0-5)
== END 2023-10-05 16:58 | disposition home or self-care (01) ==
LOC: OPOB 13:57 → OBGYN 13:59
PROVIDERS: Family Medicine; PCP Family Medicine Adult Medicine; Visit Provider Family Medicine
DX: O99.891 Other specified diseases and conditions complicating pregnancy (principal); N13.30 Unspecified hydronephrosis; O36.8190 Decreased fetal movements, unspecified trimester, not applicable or unspecified
CPT/HCPCS: 59025; 76770; 81001; 99211

== ENCOUNTER 2023-10-05 19:47 | Outpatient (CLI) | payer MEDICAID, SELFPAY ==
[2023-10-05 19:47] VITALS: BMI 24.6
[2023-10-05 20:03] VITALS: BP 135/61; PULSE 120
[2023-10-05 20:25] VITALS: BP 109/55; PULSE 89
[2023-10-05] MEDS: lactated ringers 1,000 ML 999 ML IV (20:40)
[2023-10-05 20:44] VITALS: BP 108/65; PULSE 93
[2023-10-05 21:04] VITALS: BP 117/57; PULSE 86
[2023-10-05] MEDS: ondansetron 2 mg/ML SDV 2 mL 4 MG IVP (21:13)
[2023-10-05 21:23] VITALS: BP 95/51; PULSE 84
[2023-10-05 21:43] VITALS: BP 94/66; PULSE 89
[2023-10-05] MEDS: hyDROXYzine 25 mg Capsule 50 MG PO (22:10)
== END 2023-10-05 22:17 | disposition home or self-care (01) ==
LOC: OPOB 19:50 → OBGYN 19:51
PROVIDERS: PCP Family Medicine Adult Medicine; Visit Provider Family Medicine
DX: O26.899 Other specified pregnancy related conditions, unspecified trimester (principal); M54.9 Dorsalgia, unspecified
CPT/HCPCS: 59025; 96374; 99211; J2405; J7120

== ENCOUNTER 2023-10-19 16:47 | Outpatient (CLI) | payer MEDICAID, SELFPAY ==
[2023-10-19] VITALS (16 sets, daily range): BP systolic 103–132; BP diastolic 57–61; PULSE 86–107; O2SAT 93–100; BMI 25.2
[2023-10-19] MEDS: terbutaline 1 mg/mL INJ 0.25 MG SUBCUT (17:40)
[2023-10-19 18:11] LABS: Nitrazine Paper, PH Negative; Urine Appearance Slightly Cloudy (CLEAR); Urine Color Yellow (Yellow)
[2023-10-19 18:12] LABS: Bilirubin Urine Neg (Negative); Blood Urine Neg (Negative); Glucose Urine UA Trace (Normal); Ketones Urine Negative (Negative); Leukocyte Esterase Urine 1+ (Negative); Nitrate Urine Negative (Negative); Protein Urine Neg (Negative); Urobilinogen Urine Norm (Negative); pH Urine 5 (5-7)
[2023-10-19 18:17] LABS: Add Urine Culture? No; Bacteria Urine TRACE /hpf; Mucus Urine 1+ /hpf; Oval Fat Bodies Urine 1+ /hpf; RBC Urine 0-4 /hpf (0-2); Transitional Epi Cells Urine 0-4 /hpf
== END 2023-10-19 18:40 | disposition home or self-care (01) ==
LOC: OPOB 16:53 → OBGYN 16:54
PROVIDERS: PCP Family Medicine Adult Medicine; Visit Provider Family Medicine
DX: O26.899 Other specified pregnancy related conditions, unspecified trimester (principal); Z3A.00 Weeks of gestation of pregnancy not specified; N89.8 Other specified noninflammatory disorders of vagina; R10.9 Unspecified abdominal pain
CPT/HCPCS: 59025; 81001; 83986; 96372; 99211; J3105

== ENCOUNTER 2023-10-26 15:00 | Outpatient (CLI) | payer MEDICAID, SELFPAY ==
[2023-10-26 15:15] VITALS: BMI 24.8
[2023-10-26 15:26] VITALS: BP 99/57; PULSE 100
[2023-10-26 15:42] VITALS: BP 110/66; PULSE 81
[2023-10-26 15:58] VITALS: BP 110/66; PULSE 81; RESP 16
== END 2023-10-26 15:55 | disposition home or self-care (01) ==
LOC: OPOB 15:06 → OBGYN 15:06
PROVIDERS: PCP Family Medicine Adult Medicine; Visit Provider Family Medicine
DX: O46.90 Antepartum hemorrhage, unspecified, unspecified trimester (principal); Z3A.00 Weeks of gestation of pregnancy not specified
CPT/HCPCS: 59025; 99211

== ENCOUNTER 2023-11-03 16:50 | Outpatient (CLI) | payer MEDICAID, SELFPAY ==
[2023-11-03 16:50] VITALS: BMI 25.2
[2023-11-03 17:05] VITALS: BP 106/60; PULSE 125
[2023-11-03 17:35] VITALS: BP 120/65; PULSE 110
[2023-11-03 18:06] VITALS: BP 123/59; PULSE 103
== END 2023-11-03 18:29 | disposition home or self-care (01) ==
LOC: OPOB 16:53 → OBGYN 16:53
PROVIDERS: Absent Provider Family Medicine; PCP Family Medicine Adult Medicine; Visit Provider Family Medicine
DX: O26.899 Other specified pregnancy related conditions, unspecified trimester (principal); Z3A.00 Weeks of gestation of pregnancy not specified; R10.9 Unspecified abdominal pain; M54.50 Low back pain, unspecified
CPT/HCPCS: 59025; 99211

== ENCOUNTER 2023-11-09 17:23 | Outpatient (CLI) | payer MEDICAID, SELFPAY ==
[2023-11-09 17:15] VITALS: BMI 24.2
[2023-11-09 17:29] VITALS: BP 127/78; PULSE 100
[2023-11-09 17:41] LABS: Nitrazine Paper, PH Negative
[2023-11-09 17:59] VITALS: BP 116/61; PULSE 94
[2023-11-09 18:25] VITALS: BP 116/61; PULSE 94
== END 2023-11-09 18:25 | disposition home or self-care (01) ==
LOC: OPOB 17:24 → OBGYN 17:27
PROVIDERS: PCP Family Medicine Adult Medicine; Visit Provider Family Medicine
DX: O36.8190 Decreased fetal movements, unspecified trimester, not applicable or unspecified (principal); Z3A.00 Weeks of gestation of pregnancy not specified
CPT/HCPCS: 59025; 83986; 99211

== ENCOUNTER 2023-11-16 21:59 | Outpatient (CLI) | payer MEDICAID, SELFPAY ==
[2023-11-16 22:09] VITALS: BP 118/61; PULSE 118
[2023-11-16 22:30] VITALS: BP 114/62; PULSE 117
[2023-11-16 22:46] VITALS: BP 117/65; PULSE 110
[2023-11-16 23:00] VITALS: BP 113/71; PULSE 97
[2023-11-16 23:17] VITALS: BP 135/70; PULSE 88
[2023-11-16 23:31] VITALS: BP 120/73; PULSE 89
== END 2023-11-16 23:47 | disposition home or self-care (01) ==
LOC: OPOB 21:59 → OBGYN 22:00
PROVIDERS: PCP Family Medicine Adult Medicine; Visit Provider Family Medicine
DX: O26.899 Other specified pregnancy related conditions, unspecified trimester (principal); Z3A.00 Weeks of gestation of pregnancy not specified; R10.9 Unspecified abdominal pain
CPT/HCPCS: 59025; 99211

== ENCOUNTER 2023-11-17 19:08 | Inpatient (IN) | payer MEDICAID, SELFPAY ==
[2023-11-17] VITALS (51 sets, daily range): BP systolic 101–166; BP diastolic 65–119; PULSE 71–173; RESP 181; TEMP 36.6–36.7; O2SAT 93–100; BMI 25.2
[2023-11-17 18:33] LABS: Basophils % 0.1 %; Eosinophils # 0.1 10^3/uL (0.0-0.8); Eosinophils % 0.7 %; Hematocrit 26.3 % (36-47); Lymphocytes # 1.8 10^3/uL (1.5-6.5); Lymphocytes % 13.4 %; Mean Corpuscular HGB Conc 31.2 g/dL (30-55); Mean Corpuscular Hemoglobin 25.9 pg (27-33); Mean Platelet Volume 10.1 fL (7.4-10.4); Monocytes # 0.7 10^3/uL (0.2-0.9); Monocytes % 4.9 %; Neutrophils # 10.84 10^3/uL (1.8-8.0); Neutrophils % 80.1 %; Nucleated Red Blood Cells % 0 %; Platelet Count 234 10^3/cmm (157-399); Red Blood Count 3.17 10^6/uL (3.85-5.65); Red Cell Distribution Width 14.6 % (12.1-15.1); White Blood Count 13.54 10^3/uL (4.5-13.0)
[2023-11-17] MEDS: lactated ringers 1,000 ML 999 ML IV ×2 (20:15→21:23)
[2023-11-17] MEDS: ROPivacaine syringe 100 MG/50 ML SYRINGE 10 MG EPIDURAL (21:24)
--- NOTE | 2023-11-17 21:26 | ANES.PREANE2 ---
Pre-Anesthetic Assessment Height/Weight: Height 1.5 m Weight 56.699 kg Pulse BP Pulse Ox O2 Del Method 89 161/73 98 Room Air 11/17/23 21:24 11/17/23 21:24 11/17/23 21:17 11/17/23 18:00 Familial anesthetic complications: None Was Beta Susan taken within 24 hours: N/A Was Clonidine taken within 24 hours: N/A Last intake: Solids 1999 Social No alcohol and No tobacco Exam alert, oriented x 3, clear to auscultation bilaterally and regular rate & rhythm Airway Submandibular: within normal limits Cervical ROM: within normal limits Mallampati: Class II Dentition: full History/ROS No significant history except as noted and No significant complaints Pulmonary None reported CV/HEM Anemia None reported Hepatic None reported GI Gastroesophageal Reflux Disease Metabolic None reported Musc/skel None reported Neuropsych Anxiety and Seizure (2.5 years ago was on medications, does not take any medications now) Anesthetic Plan ASA status: 2 Anesthesia: Anesthesia Evaluation, General and Regional (specify below) (Epidural) Risk of > 500 ml blood loss (7ml/kg in children): Yes, adequate IV access and fluids planned Medications/Allergies Home Medications Medication Instructions Recorded Confirmed Last Taken Type 1 dose PO DAILY 09/15/23 11/16/23 11/15/23 History Allergies Allergy/AdvReac Type Severity Reaction Status Date / Time No Known Allergies Allergy Verified 11/16/23 23:41 Current Medications Generic Name Dose Route Start Last Admin Trade Name Freq PRN Reason Stop Dose Admin Lactated Ringer's 1,000 mls @ 999 mls/hr 11/17/23 20:17 11/17/23 21:23 Lactated Ringers IV 999 mls/hr .Q1H1M PRN Administration See label comments Ropivacaine 100 mg in 50 mls @ 10 mls/hr 11/17/23 20:30 11/17/23 21:24 Naropin Syringe EPIDURAL 10 mls/hr .Q5H MARK Administration PFSH Anesthesia Medical History Allergic rhinitis due to allergen Viral URI with cough Insomnia Arthralgia Foster care child Anxiety and depression Seizures She stopped keppra 01/2021 at the recommendation of her PCP in [place]. Her last seizure was right before coming off the keppra. She has not seen neurology since coming out of foster care-- at least 2019. Contraception management Surgical History History of tonsillectomy and adenoidectomy Surgery at age 4 in [place], [place] Family History Grandmother Diabetes maternal Hypertension Paternal Family/Other Cancer Maternal uncle; type unknown Denies family history of Colon cancer Ovarian cancer Heart disease Hypercholesteremia Breast cancer Uterine cancer Thyroid disease Stroke Social History Substance/Drug Use: never Additional social history: Well balanced diet Do you think of yourself as: Straight/Heterosexual Female Reproductive History : 1 Data Anesthesia 11/17/23 18:05 Short CBC 11/17/23 Range/Units 18:05 WBC 13.54 H (4.5-13.0) 10^3/uL Hgb 8.20 L (12.4-14.8) g/dL Hct 26.3 L (36-47) % MCV 83.0 L (85-98) fl Plt Count 234 (157-399) 10^3/cmm Neut % (Auto) 80.1 % Neut # (Auto) 10.84 H (1.8-8.0) 10^3/uL Blood Bank 11/17/23 18:05 Blood Type O Positive Rho(D) Type Rh positive Antibody Screen Negative Cardiac Studies: No Data to Display
--- NOTE | 2023-11-17 21:29 | P.ANES_ITS ---
Anesthesia Procedures Procedure/Date: 11/17/23 Epidural: Time Out Performed: Yes Consents Signed: Procedure Consent and NPO Consent Consent: requested by attending/covering physician, from patient, risks and benefits reviewed and patient agrees to proceed Lumbar Level: L3-L4 Epidural position: sitting Epidural procedure: sterile prep of area (betadine), 1% lidocaine to numb the area (3 mLs), neg for paresthesia, test dose given, 1.5% xylocaine 1:200k epi (3 mL/2 mL), placed PCEA, no systemic response, sterile dressing applied, L.U.D. no apparent complications and 0.2% Ropiavacaine @ mls/hr (10 mLs/hr) Additional Comments: JOE 5.5cm, catheter threaded to 11cm. Negative for CSF on aspiration before and after test dose and before start of infusion. CORRECTIONAL MAINTENANCE TECHNICIAN button within reach and patient educated on use. 2157: Patient complains of pain in lower back and pelvic region. 100mcg fentanyl given via epidural. Negative for CSF aspiration. Patient educated on CORRECTIONAL MAINTENANCE TECHNICIAN use.
[2023-11-17] MEDS: oxytocin 30 UNIT/500 ML BAG 600 UNIT IV (23:56)
[2023-11-18] VITALS (15 sets, daily range): BP systolic 98–149; BP diastolic 56–88; PULSE 63–173; RESP 16–17; TEMP 36.8–37.7; O2SAT 97–98
--- NOTE | 2023-11-18 00:15 | PM.OPHPUD ---
Labor & Delivery H&P Update Date of Procedure: November 18, 2023 Date H&P Performed: 11/16/23 Admission Diagnosis: IUP at 39 weeks 3 days gestation Active labor Planned procedure: Expectant management of labor and delivery
--- NOTE | 2023-11-18 00:16 | PM.DELIVERY ---
Delivery Note: Date of delivery: November 18, 2023 Procedure: Normal spontaneous vaginal delivery Delivering Physician: Denisse Han MD Estimated blood loss (mL): 300 Pre-Delivery Course: The patient had routine care at [facility] with Dr. Michael. She was positive early on for chlamydia and had negative test of cure 11/16/23. labs: Blood type O+, antibody negative, hepatitis B nonreactive, hepatitis C nonreactive, HIV nonreactive, RPR nonreactive, rubella immune, gonorrhea negative, chlamydia positive, test of cure for chlamydia negative, glucose tolerance 127, GBS negative. Delivery: This is a 18-year-old G1, P0 at 39 weeks 2 days gestation who was admitted to labor and delivery in active labor. She underwent artificial rupture of membranes with clear fluid. She received an epidural for pain management. Her labor progressed well on its own. She had a normal spontaneous vaginal delivery of a viable female weight 3140 g, Apgars 8 and 9 over an intact perineum. The infant was suctioned at delivery and placed on the mother's chest. The cord was clamped and cut. The placenta was delivered grossly intact and normal to inspection. There were cysts small first-degree labial lacerations that did not require suturing. Mother and infant were doing well after delivery History History History 1 Term 1 0 Miscarriages/Ectopic 0 Living Children 1 Coding Level of Care Code Acute Code for Chg Fwd
[2023-11-18] MEDS: miSOPROStol 200 mcg Tablet 800 MCG PR (00:23)
[2023-11-18] MEDS: docusate sodium 100 mg Capsule PO ×2 (08:18→17:47)
[2023-11-18] MEDS: ibuprofen 800 mg tablet PO ×3 (08:18→22:08)
[2023-11-18] MEDS: PRENATAL VIT NO.130/IRON/FOLIC 1 EACH TABLET PO (08:18)
--- NOTE | 2023-11-18 09:33 | P.PN_ITS ---
Subjective 2 Subjective: day 0-1 Doing well. She states that her bleeding is slightly heavier than a period, but not saturating pads within an hour or 2. Vitals/I&O/Wt Last Vital Signs Temp 99.6 F 11/18/23 04:45 Pulse 107 H 11/18/23 04:45 Resp 16 11/18/23 04:45 BP 114/88 11/18/23 04:45 Pulse Ox 98 11/18/23 04:45 O2 Del Method Room Air 11/18/23 04:45 11/17/23 11/18/23 11/18/23 22:59 06:59 14:59 Intake Total 1266.4 / 1266.4 833.333 / 2099.733 Output Total 100 / 100 Balance 1266.4 / 1266.4 733.333 / 1998.733 Weight last 48 hrs Weight 56.699 kg Physical Exam 2 Narrative: Alert and oriented, sitting up in bed visiting with visitors, heart regular rate and rhythm, lungs clear to auscultation bilaterally, abdomen is soft and nontender, fundus is firm and low in the pelvis, extremities have no edema, no calf tenderness Urinary Catheter Management: Mullins: Cath Placed During This Visit: yes, but has since been removed by the nurse Reason for Continuing Indwelling Catheter: Decision to DC Catheter Urinary Catheter Date of Insertion: 11/17/23 Urinary Catheter Time of Insertion: 22:16 Date Urinary Catheter Removed: 11/17/23 Time Urinary Catheter Discontinued: 23:26 Data 11/17/23 18:05 A&P Assessment and plan (1) Normal spontaneous vaginal delivery: Continue routine care. If doing well likely discharge home tomorrow Attestations 2 Medical Necessity Statement*: Routine care Coding Level of Care Code Acute Code for Chg Fwd Diagnoses Normal spontaneous vaginal delivery O80
[2023-11-18 12:10] LABS: Hematocrit 25.9 % (36-47); Mean Corpuscular HGB Conc 29.7 g/dL (30-55); Mean Corpuscular Hemoglobin 25.8 pg (27-33); Mean Corpuscular Volume 86.9 fl (85-98); Mean Platelet Volume 9.6 fL (7.4-10.4); Platelet Count 219 10^3/cmm (157-399); Red Blood Count 2.98 10^6/uL (3.85-5.65); Red Cell Distribution Width 14.6 % (12.1-15.1); White Blood Count 18.19 10^3/uL (4.5-13.0)
[2023-11-19 04:05] VITALS: BP 99/62; PULSE 74; RESP 16; TEMP 36.6; O2SAT 98
--- NOTE | 2023-11-19 08:00 | ANE.PACU2 ---
Inpatient post-anesthesia follow up: Airway intact: Yes Vital signs: Temperature 98 F Pulse Rate 83 Respiratory Rate 16 Blood Pressure 104/63 Pulse Oximetry 97 Oxygen Delivery Me thod Room Air Oxygen Flow Rate Fraction of Inspir ed Oxygen Hydration adequate: Yes Nausea and vomiting: No Pain level: 1 Mental status: Baseline Epidural Start/End: Epidural Start Date: 11/17/23 Epidural Start Time: 21:05 Epidural End Date: 11/18/23 Epidural End Time: 00:16
[2023-11-19] MEDS: ibuprofen 800 mg tablet PO (08:38)
[2023-11-19] MEDS: PRENATAL VIT NO.130/IRON/FOLIC 1 EACH TABLET PO (08:39)
[2023-11-19] MEDS: docusate sodium 100 mg Capsule PO (08:39)
[2023-11-19 09:44] VITALS: BP 89/58; PULSE 77; RESP 17; TEMP 36.6; O2SAT 99
--- NOTE | 2023-11-19 10:34 | PM.DCS ---
Discharge Providers Date of Admission: 11/17/23 19:08 Date of Discharge: November 19, 2023 Attending Provider at Admission: Denisse Han MD Attending Provider at Discharge: Denisse Han MD Primary Care Provider: Robin Smith MD Diagnoses at Discharge Discharge Diagnosis (1) Normal spontaneous vaginal delivery: Status: Acute Reason for Visit Reason for Visit: Contractions Hospital Course Hospital Course This is a 18-year-old G1, P1 who was admitted in active labor at 39 weeks gestation and had a normal spontaneous vaginal delivery of a viable female infant. Mother and infant have done well after delivery. Mother's bleeding is light, she has no abdominal pain and is comfortable with discharge home. Physical Exam Narrative: Watching TV in bed holding the infant, heart regular rate and rhythm, lungs clear to auscultation bilaterally, abdomen is soft and nontender, fundus is firm, extremities have no calf tenderness and no edema. Urinary Catheter Management: Mullins: Cath Placed During This Visit: yes, but has since been removed by the nurse Reason for Continuing Indwelling Catheter: Decision to DC Catheter Urinary Catheter Date of Insertion: 11/17/23 Urinary Catheter Time of Insertion: 22:16 Date Urinary Catheter Removed: 11/17/23 Time Urinary Catheter Discontinued: 23:26 Discharge Data Studies Completed and Pending Laboratory Results WBC 18.19 10^3/uL (4.5-13.0) H 11/18/23 12:03 RBC 2.98 10^6/uL (3.85-5.65) L 11/18/23 12:03 Hgb 7.70 g/dL (12.4-14.8) L 11/18/23 12:03 Hct 25.9 % (36-47) L 11/18/23 12:03 MCV 86.9 fl (85-98) 11/18/23 12:03 MCH 25.8 pg (27-33) L 11/18/23 12:03 MCHC 29.7 g/dL (30-55) L 11/18/23 12:03 RDW 14.6 % (12.1-15.1) 11/18/23 12:03 Plt Count 219 10^3/cmm (157-399) 11/18/23 12:03 MPV 9.6 fL (7.4-10.4) 11/18/23 12:03 Neut % (Auto) 80.1 % 11/17/23 18:05 Lymph % (Auto) 13.4 % 11/17/23 18:05 [place] % (Auto) 4.9 % 11/17/23 18:05 Eos % (Auto) 0.7 % 11/17/23 18:05 Baso % (Auto) 0.1 % 11/17/23 18:05 Neut # (Auto) 10.84 10^3/uL (1.8-8.0) H 11/17/23 18:05 Lymph # (Auto) 1.8 10^3/uL (1.5-6.5) 11/17/23 18:05 [place] # (Auto) 0.7 10^3/uL (0.2-0.9) 11/17/23 18:05 Eos # (Auto) 0.1 10^3/uL (0.0-0.8) 11/17/23 18:05 Baso # (Auto) 0.0 10^3/uL (0.0-0.1) 11/17/23 18:05 Nucleated RBC % (auto) 0 % 11/17/23 18:05 Nucleated RBCs # 0.0 /100WBC 11/17/23 18:05 Blood Type O Positive 11/17/23 18:05 Rho(D) Type Rh positive 11/17/23 18:05 Antibody Screen Negative 11/17/23 18:05 Vitals Last Vital Signs Temp 97.9 F 11/19/23 09:44 Pulse 77 11/19/23 09:44 Resp 17 11/19/23 09:44 BP 89/58 11/19/23 09:44 Pulse Ox 99 11/19/23 09:44 O2 Del Method Room Air 11/19/23 09:44 Discharge Plan Discharge Patient Disposition: Home Condition: Stable Prescriptions: Continued 1 dose PO DAILY Discharge Orders: Discharge Order (Routine); Ordered 11/19/23 Ordered By: Denisse Han Referrals: Faheem Michael MD [Physician] - 6 Weeks Discharge Diet: Usual diet Discharge Activity: Limit activity as instructed Patient Instructions: Depression (DC), Opioid Safety (DC), Preeclampsia and Eclampsia After Delivery (GEN), Hemorrhage (DC), OB Discharge Report, OB Food/Drug Interaction Guide, OB Care at Home, Opioid Safety, OB Vaginal Deliveries, Abnormal Bleeding Activity Restrictions/Additional Instructions: Nothing per vagina for 6 weeks Discharge Attestations Time Spent in Discharge Care*: less than 30 min Quality Metrics Clinical Quality Measures [ No reported AMI, CVA or VTE this stay] Coding Level of Care Code Acute Code for Chg Fwd Diagnoses Normal spontaneous vaginal delivery O80
[2023-11-19 13:49] VITALS: BP 104/63; PULSE 83; RESP 16; TEMP 36.6; O2SAT 97
== END 2023-11-19 13:50 | disposition home or self-care (01) | DRG 806 ==
LOC: OPOB 11-18 08:14
PROVIDERS: Admitting Provider Family Medicine; PCP Family Medicine Adult Medicine; Visit Provider Family Medicine
DX: O70.0 First degree perineal laceration during delivery (principal); O72.1 Other immediate postpartum hemorrhage; Z37.0 Single live birth; Z3A.39 39 weeks gestation of pregnancy
CPT/HCPCS: 36415; 51702; 59025; 59409; 85025; 85027; 86850; 86900; 96374; 99211; J2590; J2795; J3010; J7120

== ENCOUNTER 2024-06-25 13:42 | Emergency (ER) | payer MEDICAID, SELFPAY ==
[2024-06-25 13:47] VITALS: BP 150/81; PULSE 96; RESP 18; TEMP 36.7; O2SAT 99; BMI 21.9
[2024-06-25 14:33] LABS: Basophils % 0.6 %; Eosinophils # 0.2 10^3/uL (0.0-0.8); Eosinophils % 2.4 %; Lymphocytes # 2.2 10^3/uL (0.8-4.8); Lymphocytes % 32.2 %; Mean Corpuscular HGB Conc 30.6 g/dL (30-55); Mean Corpuscular Hemoglobin 24.8 pg (27-33); Mean Platelet Volume 9.1 fL (7.4-10.4); Monocytes # 0.4 10^3/uL (0.2-0.9); Monocytes % 5.3 %; Neutrophils # 3.99 10^3/uL (1.8-7.7); Neutrophils % 59.4 %; Nucleated Red Blood Cells % 0 %; Platelet Count 258 10^3/cmm (157-399); Red Blood Count 4.32 10^6/uL (3.85-5.65); Red Cell Distribution Width 15.1 % (12.1-15.1); White Blood Count 6.73 10^3/uL (3.29-11.43)
[2024-06-25 14:56] LABS: HCG Quantitative 12.09 mIU/mL
[2024-06-25 17:07] VITALS: RESP 18; O2SAT 98
--- NOTE | 2024-06-25 17:57 | ED_ITS ---
HPI - 2 General: Chief complaint: Vaginal Bleeding Stated complaint: sent by ob possible miscarriage Time Seen by Provider: 06/25/24 17:20 History of Present Illness: 19-year-old female at approximately 7 we eks gestation presents to the emergency room complaining of cramping low back pain. Cramping is decreased some as has the bleeding. She was approximately 7 weeks gestation by an LMP. She has not had her first OB visit yet. She denies any dysuria urgency frequency fever sweats or chills. Associated symptoms: Deny abdominal pain or dysuria Related Data Home Medications ?Medication ?Instructions ?Recorded ?Confirmed 1 dose PO DAILY 09/15/2309/06 Previous Rx's ?Medication ?Instructions ?Recorded ferrous sulfate 325 mg (65 mg 325 mg PO DAILY #30 tabs 11/19/23 iron) tablet,delayed release Allergies Allergy/AdvReac Type Severity Reaction Status Date / Time No Known Allergies Allergy Verified 11/17/23 23:01 Review of Systems 2 Const: Denies: fever(s) or chills Card: Denies: chest pain Resp: Denies: dyspnea GI: Denies: abdominal pain : Reports: vaginal bleeding and pelvic pain; Denies: dysuria, urinary frequency or urinary urgency Musc: Denies: neck pain or back pain Skin/Breast: Denies: rash PFSH ED 2 PFSH: Medical History Allergic rhinitis due to allergen Viral URI with cough Insomnia Arthralgia Foster care child Anxiety and depression Seizures She stopped keppra 01/2021 at the recommendation of her PCP in [place]. Her last seizure was right before coming off the keppra. She has not seen neurology since coming out of foster care-- at least 2019. Contraception management Surgical History History of tonsillectomy and adenoidectomy Surgery at age 4 in [place], [place] Family History Grandmother Diabetes maternal Hypertension Paternal Family/Other Cancer Maternal uncle; type unknown Denies family history of Colon cancer Ovarian cancer Heart disease Hypercholesteremia Breast cancer Uterine cancer Thyroid disease Stroke Social History (Reviewed 06/25/24 @ 17:58 by MIRANDA Petit Substance/Drug Use: never Additional social history: Well balanced diet Do you think of yourself as: Straight/Heterosexual Physical Exam 2 Const: COMMON NORMALS: no acute distress GENERAL APPEARANCE: cooperative and comfortable ORIENTATION/CONSCIOUSNESS: Yes awake, Yes oriented to person, Yes oriented to place and Yes oriented to time HENMT: COMMON NORMALS: normocephalic, atraumatic and hearing grossly normal bilaterally HEAD & SCALP: normocephalic and atraumatic Resp: COMMON NORMALS: normal respiratory effort, No retractions, No use of accessory muscles and clear to auscultation bilaterally AUSCULTATION: clear to auscultation bilaterally Cardio: COMMON NORMALS: regular rate, regular rhythm and No murmurs present (Cardio) RATE: regular rate RHYTHM: regular rhythm GI: COMMON NORMALS: Soft to palpation and No hepatosplenomegaly present A USCULTATION: Yes normoactive bowel sounds PALPATION: Yes Soft to palpation, No Tenderness to palpation present (GI), No Guarding due to palpation present (GI) and Yes No hepatosplenomegaly present Extremity: COMMON NORMALS: normal to inspection, capillary refill normal, no clubbing, cyanosis or edema, no calf tenderness and no pedal edema Neuro: SENSORIUM/ORIENTATION: Yes oriented to person, Yes oriented to place and Yes oriented to time Skin: COMMON NORMALS: no rashes or lesions noted GENERAL SKIN EXAM: no rashes or lesions noted Course 2 Vital Signs: Vital signs: Vital Signs Temperature 98.1 F 06/25/24 13:47 Pulse Rate 96 06/25/24 13:47 Respiratory Rate 18 06/25/24 17:07 Blood Pressure 150/81 06/25/24 13:47 Pulse Oximetry 98 06/25/24 17:07 Oxygen Delivery Me thod Room Air 06/25/24 17:07 MDM - OB/Uterine Contractions Medical Decision Making First trimester spontaneous miscarriage. hCG down to 12. Will discharge the patient home have her follow-up with her doctor in the next 3 to 4 days for repeat beta-hCG. Abdominal exam at this time is generally benign. Vital signs stable. Medical Records I reviewed the patient's medical records. Lab Data I reviewed the patient's lab results. 06/25/24 14:10 Laboratory Results WBC 6.73 10^3/uL (3.29-11.43) 06/25/24 14:10 RBC 4.32 10^6/uL (3.85-5.65) 06/25/24 14:10 Hgb 10.70 g/dL (11.27-16.99) L 06/25/24 14:10 Hct 35.0 % (36-47) L 06/25/24 14:10 MCV 81.0 fl (85-98) L 06/25/24 14:10 MCH 24.8 pg (27-33) L 06/25/24 14:10 MCHC 30.6 g/dL (30-55) 06/25/24 14:10 RDW 15.1 % (12.1-15.1) 06/25/24 14:10 Plt Count 258 10^3/cmm (157-399) 06/25/24 14:10 MPV 9.1 fL (7.4-10.4) 06/25/24 14:10 Neut % (Auto) 59.4 % 06/25/24 14:10 Lymph % (Auto) 32.2 % 06/25/24 14:10 [place] % (Auto) 5.3 % 06/25/24 14:10 Eos % (Auto) 2.4 % 06/25/24 14:10 Baso % (Auto) 0.6 % 06/25/24 14:10 Neut # (Auto) 3.99 10^3/uL (1.8-7.7) 06/25/24 14:10 Lymph # (Auto) 2.2 10^3/uL (0.8-4.8) 06/25/24 14:10 [place] # (Auto) 0.4 10^3/uL (0.2-0.9) 06/25/24 14:10 Eos # (Auto) 0.2 10^3/uL (0.0-0.8) 06/25/24 14:10 Baso # (Auto) 0.0 10^3/uL (0.0-0.1) 06/25/24 14:10 Nucleated RBC % (auto) 0 % 06/25/24 14:10 Nucleated RBCs # 0.0 /100WBC 06/25/24 14:10 Ser , Semi-Qnt 12.09 mIU/mL 06/25/24 14:10 No radiology studies performed this visit Discharge Plan Discharge Patient Disposition: Home Clinical Impression: Spontaneous miscarriage Condition: Stable Prescriptions: No Action ferrous sulfate 325 mg (65 mg iron) tablet,delayed release (DR/EC) 325 mg PO DAILY Qty: 30 1RF 1 dose PO DAILY Discharge Orders: Discharge ED (Routine); Ordered 06/25/24 Ordered By: Gonzalo Lang Referrals: Robin Smith MD [Primary Care Provider] - Discharge Diet: Usual diet Discharge Activity: Increase activity as tolerated Patient Instructions: Miscarriage (ED), Opioid Safety, Pain Management Activity Restrictions/Additional Instructions: Thank you for choosing [facility] for your healthcare needs today. It is very important that you follow up as instructed or that you return to the Emergency Department should you have concerns or if your condition changes or worsens in any way. You were seen in the emergency room with vaginal bleeding. Your laboratory studies show that you have miscarried. You should have a repeat blood test for hCG (hormone to ) in about 3 to 4 days. Your blood type is O+ and you does not need RhoGAM. You will likely continue to have some bleeding and cramping the next few days you can use Tylenol Aleve or ibuprofen for this. Print Language: Italian Coding Level of Care Code ED Flaker Operator for Faizan Yao
[2024-06-25 17:58] VITALS: BP 132/71; PULSE 76; O2SAT 98
== END 2024-06-25 17:58 | disposition home or self-care (01) ==
PROVIDERS: Emergency Medicine; Emergency Provider Family Medicine; PCP Family Medicine Adult Medicine
DX: O03.9 Complete or unspecified spontaneous abortion without complication (principal)
CPT/HCPCS: 36415; 84702; 85025; 99283

== ENCOUNTER 2024-07-27 17:20 | Emergency (ER) | payer MEDICAID, SELFPAY ==
[2024-07-27 17:27] VITALS: BP 125/81; PULSE 87; RESP 18; TEMP 36.7; O2SAT 100
--- NOTE | 2024-07-27 17:35 | ED_ITS ---
HPI - General Adult 2 General: Chief complaint: General Medical Stated complaint: 1st trimester preg-cramping Time Seen by Provider: 07/27/24 17:32 Source: patient Mode of arrival: ambulatory Limitations: no limitations History of Present Illness: 19-year-old female who states that she b amauries she is roughly 3 to 4 weeks she had a miscarriage little over a month ago she states she had followed with her OB and her levels did go back to 0 she states she has had positive test this week and today started having some cramping she states cramping is are mild she denies any vaginal bleeding denies any severe pain denies any worse improved factors Associated symptoms: Deny chest pain, dyspnea, headache(s), nausea, rash or vomiting Related Data Home Medications ?Medication ?Instructions ?Recorded ?Confirmed 1 dose PO DAILY 09/15/2309/06 Previous Rx's ?Medication ?Instructions ?Recorded ferrous sulfate 325 mg (65 mg 325 mg PO DAILY #30 tabs 11/19/23 iron) tablet,delayed release Allergies Allergy/AdvReac Type Severity Reaction Status Date / Time No Known Allergies Allergy Verified 11/17/23 23:01 Review of Systems 2 Const: Denies: fever(s), chills, body aches or change in appetite ENMT: Denies: throat pain or dental pain Card: Denies: chest pain Resp: Denies: dyspnea GI: Reports: abdominal pain; Denies: nausea, vomiting or diarrhea : Denies: dysuria or vaginal bleeding Musc: Denies: neck pain or back pain Skin/Breast: Denies: rash Neuro: Denies: headache(s) PFSH ED 2 PFSH: Medical History Allergic rhinitis due to allergen Viral URI with cough Insomnia Arthralgia Foster care child Anxiety and depression Seizures She stopped keppra 01/2021 at the recommendation of her PCP in [place]. Her last seizure was right before coming off the keppra. She has not seen neurology since coming out of foster care-- at least 2019. Contraception management Surgical History History of tonsillectomy and adenoidectomy Surgery at age 4 in [place], [place] Family History Grandmother Diabetes maternal Hypertension Paternal Family/Other Cancer Maternal uncle; type unknown Denies family history of Colon cancer Ovarian cancer Heart disease Hypercholesteremia Breast cancer Uterine cancer Thyroid disease Stroke Social History Substance/Drug Use: never Additional social history: Well balanced diet Do you think of yourself as: Straight/Heterosexual Physical Exam 2 Const: COMMON NORMALS: no acute distress, patient oriented x3 and healthy appearing HENMT: COMMON NORMALS: normocephalic and atraumatic HEAD & SCALP: n ormocephalic and atraumatic Eye: COMMON NORMALS: conjunctivae normal CONJUNCTIVA: Yes conjunctivae normal Neck/C-Spine: COMMON NORMALS: full ROM and supple Chest: COMMONS NORMALS: normal inspection of the chest Resp: COMMON NORMALS: normal respiratory effort Cardio: COMMON NORMALS: regular rate, regular rhythm and No murmurs present (Cardio) RATE: regular rate RHYTHM: regular rhythm GI: COMMON NORMALS: Normal to inspection, nondistended, normoactive bowel sounds present, Soft to palpation, non-tender and no masses PALPATION: Yes Soft to palpation Extremity: COMMON NORMALS: normal to inspection and full ROM Neuro: COMMON NORMALS: patient oriented x3, moves all extremities and no focal motor deficits Psych: COMMON NORMALS: mental status grossly normal, Normal thought process present and cooperative THOUGHT PROCESS: Normal thought process present Skin: COMMON NORMALS: no rashes or lesions noted and no wounds GENERAL SKIN EXAM: no rashes or lesions noted Course 2 Vital Signs: Vital signs: Vital Signs Temperature 98.1 F 07/27/24 17:27 Pulse Rate 87 07/27/24 17:27 Respiratory Rate 18 07/27/24 17:27 Blood Pressure 125/81 07/27/24 17:27 Pulse Oximetry 100 07/27/24 17:27 Oxygen Delivery Me thod Room Air 07/27/24 17:27 MDM - General Adult Medical Decision Making Patient presents here with early she had some cramping no severe pain her exam here is benign she has no bleeding patient's ultrasound showed gestational sac no definite pole she has no signs of ectopic here on exam vitals have been normal informed her needed she needs to follow-up with PCP next week to have a repeat quantitative and ultrasound she understands this I informed her if she has worsening pain or bleeding she is return to the ER she understands agrees to plan Medical Records I reviewed the patient's medical records. Lab Data I reviewed the patient's lab results. 07/27/24 17:44 Radiology Impressions Obstetrics Ultrasound 07/27/24 18:14 IMPRESSION: 1. Intrauterine cystic space compatible with an early gestational sac. No pole or yolk sac at this time. Consider follow-up pelvic sonography and trending of beta HCG in 7-14 days. Laboratory Results WBC 8.18 10^3/uL (3.29-11.43) 07/27/24 17:44 RBC 3.91 10^6/uL (3.85-5.65) 07/27/24 17:44 Hgb 9.90 g/dL (11.27-16.99) L 07/27/24 17:44 Hct 32.1 % (36-47) L 07/27/24 17:44 MCV 82.1 fl (85-98) L 07/27/24 17:44 MCH 25.3 pg (27-33) L 07/27/24 17:44 MCHC 30.8 g/dL (30-55) 07/27/24 17:44 RDW 15.4 % (12.1-15.1) H 07/27/24 17:44 Plt Count 210 10^3/cmm (157-399) 07/27/24 17:44 MPV 10.1 fL (7.4-10.4) 07/27/24 17:44 Neut % (Auto) 70.1 % 07/27/24 17:44 Lymph % (Auto) 21.8 % 07/27/24 17:44 [place] % (Auto) 5.5 % 07/27/24 17:44 Eos % (Auto) 1.8 % 07/27/24 17:44 Baso % (Auto) 0.4 % 07/27/24 17:44 Neut # (Auto) 5.74 10^3/uL (1.8-7.7) 07/27/24 17:44 Lymph # (Auto) 1.8 10^3/uL (0.8-4.8) 07/27/24 17:44 [place] # (Auto) 0.5 10^3/uL (0.2-0.9) 07/27/24 17:44 Eos # (Auto) 0.2 10^3/uL (0.0-0.8) 07/27/24 17:44 Baso # (Auto) 0.0 10^3/uL (0.0-0.1) 07/27/24 17:44 Nucleated RBC % (auto) 0 % 07/27/24 17:44 Nucleated RBCs # 0.0 /100WBC 07/27/24 17:44 Ser , Semi-Qnt 2568.00 mIU/mL 07/27/24 17:44 All radiology interpretation(s) finalized by discharge Discharge Plan Discharge Patient Disposition: Home Clinical Impression: at early stage Condition: Stable Prescriptions: No Action ferrous sulfate 325 mg (65 mg iron) tablet,delayed release (DR/EC) 325 mg PO DAILY Qty: 30 1RF 1 dose PO DAILY Discharge Orders: Discharge ED (Routine); Ordered 07/27/24 Ordered By: Mariana Nettles Referrals: Robin Smith MD [Primary Care Provider] - Discharge Diet: Advance as tolerated Discharge Activity: Resume usual activity Patient Instructions: (ED) Print Language: Turkish Coding Level of Care Code ED Field Pipelines Supervisor for Hosseing Maximilian
[2024-07-27 17:55] LABS: Basophils % 0.4 %; Eosinophils # 0.2 10^3/uL (0.0-0.8); Eosinophils % 1.8 %; Hematocrit 32.1 % (36-47); Lymphocytes # 1.8 10^3/uL (0.8-4.8); Lymphocytes % 21.8 %; Mean Corpuscular HGB Conc 30.8 g/dL (30-55); Mean Corpuscular Hemoglobin 25.3 pg (27-33); Mean Corpuscular Volume 82.1 fl (85-98); Mean Platelet Volume 10.1 fL (7.4-10.4); Monocytes # 0.5 10^3/uL (0.2-0.9); Monocytes % 5.5 %; Neutrophils # 5.74 10^3/uL (1.8-7.7); Neutrophils % 70.1 %; Nucleated Red Blood Cells % 0 %; Platelet Count 210 10^3/cmm (157-399); Red Blood Count 3.91 10^6/uL (3.85-5.65); Red Cell Distribution Width 15.4 % (12.1-15.1); White Blood Count 8.18 10^3/uL (3.29-11.43)
[2024-07-27 18:07] LABS: Slide Review Slide Review Perform
--- NOTE | 2024-07-27 18:14 | USR_ITS ---
PROCEDURE INFORMATION: Exam: US First Trimester, Transabdominal and US , Transvaginal Exam date and time: 07/27/2024 6:36 PM Age: 19 years old Clinical indication: complicated by abdominal or pelvic pain; Lower; First trimester (<14 weeks 0 days); Gestational age or lmp: 5w 2d; ; Additional info: Abd pain in preg LABS AND CLINICAL REPORTS: Last menstrual period start date: 06/25/2024 Gestational age (Established): 4 w 4 d Estimated due date (Established): 04/01/2025 TECHNIQUE: Imaging protocol: Real-time transabdominal obstetrical ultrasound of the maternal pelvis and a first trimester , less than 14 weeks 0 days, with image documentation. Transvaginal imaging was used for better evaluation of the fetus, adnexa, and/or cervix. COMPARISON: US OB BPP wo NST [id number] 09/28/2023 9:11 PM FINDINGS: GESTATION: Gestation: There is an intrauterine cystic space measuring up to 6 mm, which may represent an early gestational sac. No evidence of yolk sac or pole at this time. MATERNAL: Cervix: Cervical length measures 3.9 cm. Right ovary/adnexa: Right ovary measures 2.5 x 2.4 x 1.5 cm. Flow is visualized. No evidence of adnexal mass. Left ovary/adnexa: Left ovary measures 2.3 x 1.5 x 2.4 cm. Flow is visualized. No evidence of adnexal mass. Intraperitoneal space: Small pelvic free fluid. US/US OB <=14 wk fetus w transvag IMPRESSION: 1. Intrauterine cystic space compatible with an early gestational sac. No pole or yolk sac at this time. Consider follow-up pelvic sonography and trending of beta HCG in 7-14 days.
== END 2024-07-27 20:03 | disposition home or self-care (01) ==
PROVIDERS: Emergency Provider Emergency Medicine; PCP Family Medicine Adult Medicine
DX: Z34.81 Encounter for supervision of other normal pregnancy, first trimester (principal)
CPT/HCPCS: 36415; 76801; 76817; 84702; 85025; 99284

== ENCOUNTER 2024-11-30 12:07 | Outpatient (CLI) | payer MEDICAID, SELFPAY ==
[2024-11-30 12:07] VITALS: BMI 21.5
[2024-11-30 12:27] VITALS: BP 101/57; PULSE 77
[2024-11-30 12:43] VITALS: BP 109/56; PULSE 85
[2024-11-30 12:46] LABS: Nitrazine Paper, PH Negative
[2024-11-30 12:57] VITALS: BP 100/54; PULSE 72
[2024-11-30 12:57] LABS: Glucose Urine UA Trace (Normal); Nitrate Urine Negative (Negative); Specific Gravity, Urine 1.019 (1.005-1.030)
[2024-11-30 13:13] VITALS: BP 106/58; PULSE 85
--- NOTE | 2024-11-30 13:17 | PC.NURSE ---
Macrobid 100mg Po BID for 7 days was called in to [facility] at this time.
[2024-11-30 13:27] VITALS: BP 99/60; PULSE 81
[2024-11-30 13:34] VITALS: BP 99/60; PULSE 81; RESP 16; O2SAT 98
== END 2024-11-30 13:34 | disposition home or self-care (01) ==
LOC: OPOB 12:14 → OBGYN 12:14
PROVIDERS: PCP Family Medicine Adult Medicine; Visit Provider Family Medicine
DX: O26.899 Other specified pregnancy related conditions, unspecified trimester (principal); Z3A.00 Weeks of gestation of pregnancy not specified; N89.8 Other specified noninflammatory disorders of vagina
CPT/HCPCS: 81001; 83986; 87086; 96372; 99211; J0696; J9999

== ENCOUNTER 2024-12-02 18:40 | Outpatient (CLI) | payer MEDICAID, SELFPAY ==
[2024-12-02] VITALS (10 sets, daily range): BP systolic 95–136; BP diastolic 53–65; PULSE 76–88; RESP 16; TEMP 36.2; O2SAT 99; BMI 23.0
[2024-12-02 19:52] LABS: Glucose Urine UA Negative (Normal); Nitrate Urine Negative (Negative); Specific Gravity, Urine 1.020 (1.005-1.030)
== END 2024-12-02 20:13 | disposition home or self-care (01) ==
LOC: OPOB 18:41 → OBGYN 18:41
PROVIDERS: PCP Family Medicine Adult Medicine; Visit Provider Family Medicine
DX: O26.899 Other specified pregnancy related conditions, unspecified trimester (principal); Z3A.00 Weeks of gestation of pregnancy not specified; R55 Syncope and collapse
CPT/HCPCS: 81001; 87086; 99211

== ENCOUNTER 2024-12-08 13:05 | Outpatient (CLI) | payer MEDICAID, SELFPAY ==
[2024-12-08 13:05] VITALS: BMI 21.4
[2024-12-08 13:29] VITALS: BP 101/56; PULSE 78
[2024-12-08 13:50] VITALS: BP 101/58; PULSE 78; O2SAT 98
== END 2024-12-08 13:54 | disposition home or self-care (01) ==
LOC: OPOB 13:06 → OBGYN 13:07
PROVIDERS: PCP Family Medicine Adult Medicine; Visit Provider Family Medicine
DX: O36.8190 Decreased fetal movements, unspecified trimester, not applicable or unspecified (principal); O26.859 Spotting complicating pregnancy, unspecified trimester; Z3A.00 Weeks of gestation of pregnancy not specified
CPT/HCPCS: 99211

== ENCOUNTER 2024-12-14 19:19 | Outpatient (CLI) | payer MEDICAID, SELFPAY ==
[2024-12-14] VITALS (7 sets, daily range): BP systolic 101–110; BP diastolic 56–60; PULSE 82–92; RESP 18; TEMP 36.2; BMI 24.6
[2024-12-14 23:39] LABS: Nitrazine Paper, PH Negative
== END 2024-12-14 20:57 | disposition home or self-care (01) ==
LOC: OPOB 19:20 → OBGYN 19:20
PROVIDERS: PCP Family Medicine Adult Medicine; Visit Provider Family Medicine
DX: O26.899 Other specified pregnancy related conditions, unspecified trimester (principal); Z3A.00 Weeks of gestation of pregnancy not specified; R10.9 Unspecified abdominal pain; N89.8 Other specified noninflammatory disorders of vagina
CPT/HCPCS: 83986; 99211

== ENCOUNTER 2024-12-19 17:20 | Outpatient (CLI) | payer MEDICAID, SELFPAY ==
[2024-12-19 17:31] VITALS: BP 104/59; PULSE 96
[2024-12-19 17:51] VITALS: BP 99/56; PULSE 88
[2024-12-19 17:54] LABS: Glucose Urine UA Trace (Normal); Nitrate Urine Negative (Negative); Specific Gravity, Urine 1.019 (1.005-1.030)
[2024-12-19 18:10] LABS: Nitrazine Paper, PH Negative
[2024-12-19 18:11] VITALS: BP 104/58; PULSE 87
== END 2024-12-19 18:24 | disposition home or self-care (01) ==
LOC: OPOB 17:21 → OBGYN 17:22
PROVIDERS: Absent Provider Family Medicine; PCP Family Medicine Adult Medicine; Visit Provider Family Medicine
DX: O26.899 Other specified pregnancy related conditions, unspecified trimester (principal); Z3A.00 Weeks of gestation of pregnancy not specified; N89.8 Other specified noninflammatory disorders of vagina; R25.2 Cramp and spasm
CPT/HCPCS: 59025; 81001; 83986; 99211

== ENCOUNTER 2024-12-23 06:39 | Emergency (ER) | payer MEDICAID, SELFPAY ==
--- OUTSIDE RECORDS SUMMARY | 2020-01-23 05:50 | XMS_ITS | Continuity of Care Document ---
Author Organization [facility] Address [address] [place] [id number] Phone Care Team Providers Care Survey Worker Name Role Phone Darion Paniagua MD Unavailable Unavailable Allergies, Adverse Reactions, Alerts Substance Reaction Status Criticality No Known Allergies Active No Inform ation Medications Medication Instructions Dosage Effective Dates (start - stop) Status Comments fluoxetine 20 mg tablet take 1 tablet by ORAL route every day 20 MG - Active ibuprofen 400 mg tablet take 1 tablet by oral route 6 hours as needed - Active fluoxetine 20 mg tablet take 1 tablet by ORAL route every day 20 MG - No Longer Active Procedures Procedure Date DOMICIL/R-HOME VISIT EST [facility] DOMICIL/R-HOME VISIT EST [facility] DOMICIL/R-HOME VISIT EST [facility] DOMICIL/R-HOME VISIT [facility] Advance Directives Directive Yes / No Effective Date File Name No Information Encounters Encounter Description Practice Location Reason(s) For Visit Diagnoses Date Provider Providers Copied on Encounter [facility], [address] [place] [address], [address], tel:[phone] *[facility][Note 3] No Information 0 Arcelia Orlando. [address] [place], [address], [place]. tel:[phone] DOMICIL/R-HO [place] VISIT EST [facility], [address] [place] [address], [address], tel:[phone] [facility] Rash (chief complaint) Rash 0 Sid [place]. #[address] [place], [place]. [phone] DOMICIL/R-HO [place] VISIT [facility], [address] [place], [address], tel:[phone] [facility] [employer] [facility] Major depressive disorder, recurrent, in remission, unspecifiedAdj ustment disorder with depressed mood 0 Arcelia Orlando. [address] [place], [address], . [phone] DOMICIL/R-HO ME VISIT [facility], [address] [place], [address], tel:[phone] [facility] [employer] [facility] Musculoskeletal pain (chief complaint) Right wrist painPerson living in residential institution 0 Sid Paris. #1 [place], . [phone] DOMICIL/R-HO ME VISIT [facility], [address] [place], [place], [facility], tel:[phone] [facility] No Information 0 Arcelia Orlando. [address] [place], [address], . [phone] [facility], [address] [place], [address], tel:[phone] [facility] No Information 0 Arcelia Orlando. [address] Adi [place], [place], [facility], . [phone] Family History Family Member Type Diagnosis Age At Onset No Information Payers Payer name Insurance type Covered libertarian ID Authoriza tion(s) No Information Social History Type Description Quantity Date Captured Comments Alcohol Use Details Unknown Caffeine Use Details Unknown Tobacco Use Status No Information Smoking Status No Information Sex Female Chief Complaint And Reason For Visit No Information Reason For Referral Reason For Referral No Information Plan Of Treatment Date Type Action Status Future Order: Radiology Order WR IST RIGHT 3 VIEWS ([id number]), Sent on: Sent History Of Present Illness Encounter Date Complaint History Of Prese nt Illness Rash The patient pres ents for Rash. The symptom(s) are described as mild, unchanged and occurs daily. Affected area(s) include both arms. The patient describes the affected area(s) as dry and itchy. Aggravating factors include clothing and heat. Associated symptoms include dry skin and pruritus. Musculoskeletal pain Onset: 1 mo nth ago. Severity level is mild-moderate. It occurs intermittently and is fluctuating. Location: right wrist. The pain is aching. Context: there is an injury. The pain is aggravated by lifting and movement. The pain is relieved by brace/splint and pain/RX meds. Associated symptoms include decreased mobility, difficulty initiating sleep and joint tenderness. Pertinent negatives include bruising, crepitus, joint instability, limping, locking, nocturnal awakening, nocturnal pain, numbness, popping, spasms, swelling, tingling in the arms, tingling in the legs and weakness. Functional Status Date Functional Assessmen t No Information Instructions Date Instruction Additional Infor mation Aveeno bath. Complet e full dose of topical steroid. F/u if s/s do not improve in 48-72 hours. Related to Rash Xray site. JABIER. Joaquin IZAGUIRRE. Further plan pending imaging results. Related to Right wrist pain Assessments Type Assessment Date No Information Patient Care Teams Name Effective Dates (start - stop) Status Members No Information
--- OUTSIDE RECORDS SUMMARY | 2024-12-23 06:43 | XMS_ITS | Clinical Summary ---
Author Organization [facility] Address [address] [place] [address] Care Team Providers Care Flag Decorator Name Role Phone Unavailable Primary Care Provider Unavailabl e Allergies No known active allergies Medications FLUoxetine (PROzac) 20 mg capsule Take 20 mg by mouth daily. 01/23/2020 Active vit-iron fumarate-fa (CORKY ) 28 mg iron- 800 mcg Tablet Take 1 Tablet by mouth daily. 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 Stress and adjustment reaction 02/20/2020 History of depression 02/20/2020 Overview (02/20/2020): On Prozac, no details Seizure-like activity 02/18/2020 Immunizations Immunization Administration Dates Next Due INFLUENZA VACCINE QUADRIVALENT 6 MOS UP PF IM Social History Tobacco Use Types Packs/Day Years Used Date Smoking Tobacco: Never Smokeless Tobacco: Never Tobacco Cessation:Counseling Given: No Alcohol Use Standard Drinks/Week Comments Never 0 (1 standard drink = 0.6 oz pur e alcohol) Comments No Sex and Gender Information Value Date Recorded Sex Assigned at Not on file Legal Sex Female 9:11 AM CDT Gender Identity Not on file Sexual Orientation Not on file Last Filed Vital Signs Vital Sign Reading Time Taken Comments Blood Pressure 102/65 05/28/2020 1:45 AM MANAGED CARE MANAGER Pulse 74 05/28/2020 1:45 AM MANAGED CARE MANAGER Temperature 36.6 C (97.8 F) 05/27/2020 11:18 PM MANAGED CARE MANAGER Respiratory Rate 17 05/28/2020 1:45 AM MANAGED CARE MANAGER Oxygen Saturation 92% 05/28/2020 1:45 AM MANAGED CARE MANAGER Inhaled Oxygen Concentration - - Weight 45.5 kg (100 lb 6.7 oz) 05/27/2020 11:18 PM MANAGED CARE MANAGER Height 152.4 cm (5') 05/27/2020 11:18 PM MANAGED CARE MANAGER Body Mass Index 19.61 05/27/2020 11:18 PM MANAGED CARE MANAGER Plan of Treatment Health Maintenance Due Date Last Done Comments CHLAMYDIA SCREENING (ANNUAL) 11-24 YEARS 2014 HPV VACCINES (1 - 3-dose series) 2018 DTAP/TDAP/TD VACCINES (1 - Tdap) 2022 HEPATITIS B VACCINES (1 of 3 - 19+ 3-dose series) 12/15 CERVICAL CANCER SCREENING 01/09/2024 HPV/Cotest (21-29) 01/09/2024 PAP SMEAR 01/09/2024 INFLUENZA VACCINE (#1) 2024 02/20/[address] [facility] Member Subscriber Plan / Payer (Ef fective 2020-Present) Name:SebastianBella Relation to Subscriber:Self Name:Sebastian Bella Payer ID:Not on file Group ID:Not on file Type:Medicaid Managed Care Address: [place] [id number] [facility] Advance Directives For more information, please contact: [phone] * Full Code (Latest Code Status on File) Date Activated Date Inactivated Comments 02/18/2020 2:49 PM 02/20/2020 1:34 PM
--- OUTSIDE RECORDS SUMMARY | 2024-12-23 06:43 | XMS_ITS | Clinical Summary ---
Author Organization [facility] Address [address] 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 History of depression 02/20/2020 Overview (09/12/2020): On Prozac, no details Seizure-like activity 02/18/2020 Immunizations Immunization Administration Dates Next Due INFLUENZA VACCINE QUADRIVALENT 6 MOS UP PF IM Social History Tobacco Use Types Packs/Day Years Used Date Smoking Tobacco: Never Smokeless Tobacco: Never Tobacco Cessation:Counseling Given: Not Answered Alcohol Use Standard Drinks/Week Comments Never 0 (1 standard drink = 0.6 oz pur e alcohol) Comments Unknown Sex and Gender Information Value Date Recorded Sex Assigned at Not on file Legal Sex Female 11:12 PM STATIONARY BOILER FIREMAN Gender Identity Not on file Sexual Orientation Not on file Last Filed Vital Signs Vital Sign Reading Time Taken Comments Blood Pressure 104/78 03/06/2022 1:20 PM CDT Pulse 79 03/06/2022 1:20 PM CDT Temperature 36.8 C (98.2 F) 03/06/2022 1:20 PM CDT Respiratory Rate 17 05/28/2020 1:45 AM STATIONARY BOILER FIREMAN Oxygen Saturation 98% 03/06/2022 1:20 PM CDT Inhaled Oxygen Concentration - - Weight 53.1 kg (117 lb) 03/06/2022 1:20 PM CDT Height 154.9 cm (5' 1 ) 03/06/2022 1:20 PM CDT Body Mass Index 22.11 03/06/2022 1:20 PM CDT Plan of Treatment Health Maintenance Due Date Last Done Comments CHLAMYDIA SCREENING (ANNUAL) 11-24 YEARS 2014 HPV VACCINES (1 - 3-dose series) 2018 DTAP/TDAP/TD VACCINES (1 - Tdap) 2022 HEPATITIS B VACCINES (1 of 3 - 19+ 3-dose series) 12/15 CERVICAL CANCER SCREENING 01/09/2024 HPV/Cotest (21-29) 01/09/2024 PAP SMEAR 01/09/2024 INFLUENZA VACCINE (#1) 2024 02/20/2020 Insurance SHOW ME HEALTHY KIDS SHOW ME HEALTHY KIDS
--- NOTE | 2024-12-23 06:44 | W.ED.NAVMDI ---
HPI - Nausea/Vomiting/Diarrhea General: Chief complaint: Headache Stated complaint: nausea Time Seen by Provider: 12/23/24 06:40 Source: patient and EMS Mode of arrival: EMS Limitations: no limitations History of Present Illness: 19-year-old female who is currently 26 weeks states she woke up this morning she had had a headache along with nausea vomiting. She states her headaches mild in nature denies any vision changes. She denies any abdominal pain denies any vaginal bleeding or dysuria. She has had no problems with this . Associated nausea: Yes Associated symtoms: Reports headache(s) and nausea; Denies chest pain or dysuria Related Data Home Medications ?Medication ?Instructions ?Recorded ?Confirmed 1 dose PO DAILY 09/15/23 12/14/24 Previous Rx's ?Medication ?Instructions ?Recorded metoclopramide HCl 10 mg tablet 10 mg PO Q6H PRN nausea and 12/23/24 (Reglan) vomiting #20 tabs Allergies Allergy/AdvReac Type Severity Reaction Status Date / Time No Known Allergies Allergy Verified 11/17/23 23:01 Review of Systems Const: Denies: fever(s), chills, body aches or change in appetite ENMT: Denies: throat pain or dental pain Card: Denies: chest pain Resp: Denies: dyspnea GI: Reports: nausea and vomiting; Denies: abdominal pain or diarrhea : Denies: dysuria Musc: Denies: neck pain or back pain Skin/Breast: Denies: rash Neuro: Reports: headache(s) PFS ED PFSH: Medical History Allergic rhinitis due to allergen Viral URI with cough Insomnia Arthralgia Foster care child Anxiety and depression Seizures She stopped keppra 01/2021 at the recommendation of her PCP in [place]. Her last seizure was right before coming off the keppra. She has not seen neurology since coming out of foster care-- at least 2019. Contraception management Surgical History History of tonsillectomy and adenoidectomy Surgery at age 4 in [place], [place] Family History Grandmother Diabetes maternal Hypertension Paternal Family/Other Cancer Maternal uncle; type unknown Denies family history of Colon cancer Ovarian cancer Heart disease Hypercholesteremia Breast cancer Uterine cancer Thyroid disease Stroke Social History Substance/Drug Use: never Additional social history: Well balanced diet Do you think of yourself as: Straight/Heterosexual Physical Exam Const: COMMON NORMALS: no acute distress, patient oriented x3 and healthy appearing HENMT: COMMON NORMALS: normocephalic and atraumatic HEAD & SCALP: normocephalic and atraumatic Eye: COMMON NORMALS: Equal, round and reactive pupils present and EOMs intact bilaterally PUPIL: Yes Equal, round and reactive pupils present Neck/C-Spine: COMMON NORMALS: full ROM and supple Chest: COMMONS NORMALS: normal inspection of the chest Resp: COMMON NORMALS: normal respiratory effort, No retractions, No use of accessory muscles and clear to auscultation bilaterally AUSCULTATION: clear to auscultation bilaterally Cardio: COMMON NORMALS: regular rate, regular rhythm and No murmurs present (Cardio) RATE: regular rate RHYTHM: regular rhythm GI: COMMON NORMALS: Normal to inspection, nondistended, normoactive bowel sounds present, Soft to palpation, non-tender and no masses PALPATION: Yes Soft to palpation Extremity: COMMON NORMALS: normal to inspection and full ROM Neuro: COMMON NORMALS: patient oriented x3, moves all extremities and no focal motor deficits Psych: COMMON NORMALS: mental status grossly normal, Normal thought process present and cooperative THOUGHT PROCESS: Normal thought process present Skin: COMMON NORMALS: no rashes or lesions noted and no wounds GENERAL SKIN EXAM: no rashes or lesions noted Course Vital Signs: Vital signs: Vital Signs Pulse Rate 96 12/23/24 07:42 Respiratory Rate 16 12/23/24 07:42 Blood Pressure 117/71 12/23/24 07:42 Pulse Oximetry 100 12/23/24 07:42 Oxygen Delivery Me thod Room Air 12/23/24 07:42 MDM - Nausea/Vomiting/Diarrhea Medical Decision Making Patient presents with headache along with above a headache is since resolved he did well-appearing here no related complaints she feels improved after Reglan Benadryl she stable for discharge follow-up PCP return if worsening. Medical Records I reviewed the patient's medical records. Lab Data I reviewed the patient's lab results. 12/23/24 07:00 12/23/24 07:00 Laboratory Results WBC 9.28 10^3/uL (3.29-11.43) 12/23/24 07:00 RBC 3.78 10^6/uL (3.85-5.65) L 12/23/24 07:00 Hgb 9.50 g/dL (11.27-16.99) L 12/23/24 07:00 Hct 31.0 % (36-47) L 12/23/24 07:00 MCV 82.0 fl (85-98) L 12/23/24 07:00 MCH 25.1 pg (27-33) L 12/23/24 07:00 MCHC 30.6 g/dL (30-55) 12/23/24 07:00 RDW 14.6 % (12.1-15.1) 12/23/24 07:00 Plt Count 217 10^3/cmm (157-399) 12/23/24 07:00 MPV 9.3 fL (7.4-10.4) 12/23/24 07:00 Neut % (Auto) 66.5 % 12/23/24 07:00 Lymph % (Auto) 24.9 % 12/23/24 07:00 [place] % (Auto) 4.8 % 12/23/24 07:00 Eos % (Auto) 2.8 % 12/23/24 07:00 Baso % (Auto) 0.4 % 12/23/24 07:00 Neut # (Auto) 6.16 10^3/uL (1.8-7.7) 12/23/24 07:00 Lymph # (Auto) 2.3 10^3/uL (0.8-4.8) 12/23/24 07:00 [place] # (Auto) 0.5 10^3/uL (0.2-0.9) 12/23/24 07:00 Eos # (Auto) 0.3 10^3/uL (0.0-0.8) 12/23/24 07:00 Baso # (Auto) 0.0 10^3/uL (0.0-0.1) 12/23/24 07:00 Nucleated RBC % (auto) 0 % 12/23/24 07:00 Nucleated RBCs # 0.0 /100WBC 12/23/24 07:00 Sodium 134 mmol/L (136-145) L 12/23/24 07:00 Potassium 3.2 mmol/L (3.5-5.1) L 12/23/24 07:00 Chloride 100 mmol/L (98-107) 12/23/24 07:00 Carbon Dioxide 22 mmol/L (22-29) 12/23/24 07:00 Anion Gap 15.2 (5-19) 12/23/24 07:00 BUN 6 mg/dL (6-20) 12/23/24 07:00 Creatinine 0.6 mg/dL (0.5-0.9) 12/23/24 07:00 GFR Calculation 126.2 mL/min (90-130) 12/23/24 07:00 Glucose 84 mg/dL (65-115) 12/23/24 07:00 Calculated Osmolality 275 mOsm/kg (285-295) L 12/23/24 07:00 Calcium 9.1 mg/dL (8.5-10.5) 12/23/24 07:00 Total Bilirubin 0.2 mg/dL (0.15-1.2) 12/23/24 07:00 AST 12 U/L (0-32) 12/23/24 07:00 ALT < 5 U/L (0-33) 12/23/24 07:00 Alkaline Phosphatase 102 U/L (35-105) 12/23/24 07:00 Total Protein 7.0 g/dL (6.6-8.7) 12/23/24 07:00 Albumin 3.8 g/dL (3.5-5.2) 12/23/24 07:00 Globulin 3.2 g/dL (1.3-4.6) 12/23/24 07:00 Lipase 29 U/L (13-60) 12/23/24 07:00 Urine Color Yellow (Yellow) 12/23/24 07:43 Urine Appearance Clear (CLEAR) 12/23/24 07:43 Urine pH 6.5 (5-7) 12/23/24 07:43 Ur Specific [place] 1.016 (1.005-1.030) 12/23/24 07:43 Urine Protein Negative (Negative) 12/23/24 07:43 Urine Glucose (UA) Negative (Normal) 12/23/24 07:43 Urine Ketones Negative (Negative) 12/23/24 07:43 Urine Blood Negative (Negative) 12/23/24 07:43 Urine Nitrate Negative (Negative) 12/23/24 07:43 Urine Bilirubin Negative (Negative) 12/23/24 07:43 Urine Urobilinogen 1.0 mg/dL (Negative) 12/23/24 07:43 Ur Leukocyte Esterase 1+ (Negative) A 12/23/24 07:43 Urine RBC 0-2 /hpf (0-2) 12/23/24 07:43 Urine WBC 6-10 /hpf (0-5) 12/23/24 07:43 Ur Squamous Epith Cells 0-5 /hpf (0-5) 12/23/24 07:43 Amorphous Sediment Not Reportable 12/23/24 07:43 Urine Bacteria Trace /hpf (NONE) 12/23/24 07:43 Hyaline Casts 0.81 /lpf 12/23/24 07:43 No radiology studies performed this visit Discharge Plan Discharge Patient Disposition: Home Clinical Impression: Headache Condition: Stable Prescriptions: New metoclopramide HCl [Reglan] 10 mg tablet 10 mg PO Q6H PRN (Reason: nausea and vomiting) Qty: 20 0RF No Action 1 dose PO DAILY Discharge Orders: Discharge ED (Routine); Ordered 12/23/24 Ordered By: Mariana Nettles Referrals: Robin Smith MD [Primary Care Provider, [facility]] Discharge Diet: Advance as tolerated Discharge Activity: Resume usual activity Patient Instructions: General Headache (ED) Print Language: Kazakh Coding Level of Care Code ED Mainframe Analyst for Faizan Yao
[2024-12-23 07:06] LABS: Hematocrit 31.0 % (36-47); Hemoglobin 9.50 g/dL (11.27-16.99); Mean Corpuscular HGB Conc 30.6 g/dL (30-55); Mean Corpuscular Hemoglobin 25.1 pg (27-33); Mean Corpuscular Volume 82.0 fl (85-98); Nucleated Red Blood Cells % 0 %; Platelet Count 217 10^3/cmm (157-399); Red Blood Count 3.78 10^6/uL (3.85-5.65); White Blood Count 9.28 10^3/uL (3.29-11.43)
[2024-12-23] MEDS: metoclopramide 5 mg/mL SDV 2 mL 10 MG IVP (07:06)
[2024-12-23] MEDS: diphenhydrAMINE 50 mg/mL SDV 1mL IVP (07:07)
[2024-12-23 07:20] LABS: Alanine Aminotransferase < 5 U/L (0-33); Albumin Level 3.8 g/dL (3.5-5.2); Alkaline Phosphatase 102 U/L (35-105); Anion Gap 15.2 (5-19); Aspartate Amino Transferase 12 U/L (0-32); Blood Urea Nitrogen 6 mg/dL (6-20); Calcium 9.1 mg/dL (8.5-10.5); Carbon Dioxide 22 mmol/L (22-29); Chloride 100 mmol/L (98-107); Globulin 3.2 g/dL (1.3-4.6); Glucose 84 mg/dL (65-115); Lipase 29 U/L (13-60); Osmolality Calculated 275 mOsm/kg (285-295); Potassium 3.2 mmol/L (3.5-5.1); Sodium 134 mmol/L (136-145); Total Protein 7.0 g/dL (6.6-8.7)
[2024-12-23 07:42] VITALS: BP 117/71; PULSE 96; RESP 16; O2SAT 100
[2024-12-23 07:47] LABS: Glucose Urine UA Negative (Normal); Nitrate Urine Negative (Negative); Specific Gravity, Urine 1.016 (1.005-1.030)
[2024-12-23] MEDS: ondansetron 2 mg/ML SDV 2 mL 4 MG IVP (07:49)
[2024-12-23 07:52] LABS: Add Urine Microscopic? YES
== END 2024-12-23 08:16 | disposition home or self-care (01) ==
PROVIDERS: Emergency Provider Emergency Medicine; PCP Family Medicine Adult Medicine
DX: O26.892 Other specified pregnancy related conditions, second trimester (principal); O21.2 Late vomiting of pregnancy; R51.9 Headache, unspecified; Z3A.26 26 weeks gestation of pregnancy
CPT/HCPCS: 80053; 81001; 83690; 85025; 96361; 96374; 96375; 99284; J1200; J2405; J2765; J7030